=== PATIENT | male | born 1955 | race Caucasian/White ===

== ENCOUNTER 2017-12-12 21:59 | Inpatient (IN) | payer BC, MEDICARE, MEDICAID ==
[~2017-12-12] VITALS: Ht 167.6 cm; Wt 96.6 kg
[2017-12-12] MEDS ORDERED: ACETAMINOPHEN ES 500 MG TABLET PO ONE (22:15)
[2017-12-12] MEDS ORDERED: IPRATROPIUM BROMIDE 0.5 MG/2.5 ML NEBU NEB ONE (22:15)
[2017-12-12] MEDS ORDERED: ALBUTEROL SULFATE 2.5 MG/3 ML NEBU NEB ONE ×2 (22:15→23:00)
[2017-12-12] MEDS ORDERED: FUROSEMIDE 20 MG/2 ML VIAL IV ONE (22:15)
--- NOTE | 2017-12-12 22:15 | NUR ---
Pt BIB [facility], reports pt was SOB, diminished LS. Pt c/o nasal congestion, cough, dyspnea x 3 days, denies FOSTER. Pt denies CP, dizziness, n/v, no other complaints, minor to moderate distress noted in breathing. Pt placed on monitor, EKG -- given to MD, IV 20g right AC, O2 applied via simple mask at 12lpm, SPO2 increased to high 90's from mid 80s.
[2017-12-12] MEDS ORDERED: ACETAMINOPHEN ES 500 MG TABLET ONE (22:43)
[2017-12-12] MEDS ORDERED: FUROSEMIDE 40 MG/4 ML VIAL ONE (22:43)
[2017-12-12] MEDS ORDERED: ALBUTEROL SULFATE 2.5 MG/3 ML NEBU ONE ×2 (22:44→23:10)
[2017-12-12] MEDS ORDERED: IPRATROPIUM BROMIDE 0.5 MG/2.5 ML NEBU ONE (22:45)
[2017-12-12] MEDS ORDERED: LEVOFLOXACIN 750 MG/D5W 150 ML PIGGYBACK IV ONE (23:30)
[2017-12-12 23:35] LABS: BASOPHILS # (AUTO) 0.1 K/uL (0.0-8.0); BASOPHILS % (AUTO) 0.4 % (0.0-2.0); EOSINOPHILS # (AUTO) 0.2 K/uL (0.0-0.7); EOSINOPHILS % (AUTO) 0.7 % (0.0-7.0); HEMATOCRIT 39.6 % (36.7-47.1); HEMOGLOBIN 13.1 g/dL (12.5-16.3); LYMPHOCYTES # (AUTO) 1.1 K/uL (20.0-40.0); MEAN CORPUSCULAR HEMOGLOBIN 26.2 uug (23.8-33.4); MEAN CORPUSCULAR HGB CONC 33 g/dL (32.5-36.3); MONOCYTES % (AUTO) 4.8 % (0.0-11.0); NEUTROPHILS # (AUTO) 19.2 K/uL (1.8-8.9); NEUTROPHILS % (AUTO) 89.1 % (38.5-71.5); PLATELET COUNT (AUTO) 305 K/uL (152-348); RED BLOOD CELL COUNT(AUTO) 5.01 MIL/uL (4.06-5.63); WHITE BLOOD COUNT (AUTO) 21.5 K/uL (3.6-10.2)
[2017-12-12 23:41] LABS: CREATININE 3.1 mg/dL (0.6-1.3); POTASSIUM 3.9 mmol/L (3.5-5.1)
[2017-12-12] MEDS ORDERED: NITROGLYCERIN 4.9 GM SPRAY TL ONE ×2 (23:45→23:55)
[2017-12-12 23:53] LABS: BILIRUBIN,DIRECT 0.1 mg/dL (0.0-0.2); BILIRUBIN,TOTAL 0.6 mg/dL (0.2-1.0)
[2017-12-13] VITALS (9 sets, daily range): BP systolic 158–190; BP diastolic 54–81
[2017-12-13] MEDS ORDERED: NITROGLYCERIN OINT 1 GM PACKET TP ONE ×2 (00:13→00:30)
[2017-12-13] MEDS ORDERED: LEVOFLOXACIN 750MG/D5W 150 ML IV ONE (00:14)
[2017-12-13] MEDS ORDERED: VANCOMYCIN IV 1,000 MG in IV DEXTROSE 5% 250 ML IV ONE (00:30)
[2017-12-13] MEDS ORDERED: PIPERACILLIN SODIUM/TAZOBACTAM 3.375 G in IV DEXTROSE 5% 50 ML IV ONE (00:30)
[2017-12-13] MEDS ORDERED: CLONIDINE HCL 0.1 MG TABLET PO ONE (00:30)
[2017-12-13] MEDS ORDERED: CLONIDINE HCL 0.1 MG TABLET ONE (00:51)
[2017-12-13] MEDS ORDERED: ONDANSETRON 4 MG/2 ML VIAL IV PRN (01:30)
[2017-12-13] MEDS ORDERED: MORPHINE SULFATE 2 MG/1 ML DISP.SYRIN IV PRN (01:30)
[2017-12-13] MEDS ORDERED: PIPERACILLIN/TAZOBACTAM/D5W 50 ML IV ONE (01:44)
--- NOTE | 2017-12-13 02:06 | NUR ---
Pt states he still can not give a urine sample.
--- NOTE | 2017-12-13 02:13 | NUR ---
Called report to Colette RODRIGUEZ.
[2017-12-13] MEDS ORDERED: VANCOMYCIN IV 200 ML ONE (02:20)
[2017-12-13] MEDS ORDERED: BUMETANIDE 1 MG/4 ML VIAL IV ONE ×2 (02:45→09:00)
--- NOTE | 2017-12-13 02:45 | NUR ---
NSG: pt received a/o x 4, fr er via gurney with dx of resp failure. received on 8L mask. lungs sounds wit expiratory wheezing and rhonchi. currently receiving vanco iv. has generalized edema, non pitting. has umbilical hernia. HOB elevated 45 degrees. at the bedside. call light within reach.
[2017-12-13] MEDS: hydrALAZINE HCL 25 MG TABLET PO PRN ×2 (03:20→18:09)
[2017-12-13] MEDS ORDERED: PIPERACILLIN/TAZOBACTAM/D5W 50 ML ONE (03:50)
--- NOTE | 2017-12-13 05:06 | NUR ---
nsg: no acute distress noted. denies discomfort. on 3L O2 via nc saturating at 96%. tele, SR. cont to monitor.
[2017-12-13] MEDS ORDERED: DEXTROSE 50% 50 ML DISP.SYRIN IV PRN ×2 (06:15→11:15)
[2017-12-13] MEDS: PIPERACILLIN/TAZOBACTAM/D5W 2.25 G in PREMIXED 1 EACH IV SCH ×3 (06:33→17:00)
[2017-12-13] MEDS: PANTOPRAZOLE SODIUM 40 MG TABLET.DR PO SCH (06:33)
[2017-12-13] MEDS: BLOOD SUGAR DIAGNOSTIC 1 EACH STRIP VI SCH ×4 (06:50→20:35)
[2017-12-13 06:54] LABS: BASOPHILS # (AUTO) 0.2 K/uL (0.0-8.0); BASOPHILS % (AUTO) 1.4 % (0.0-2.0); EOSINOPHILS % (AUTO) 0.1 % (0.0-7.0); HEMATOCRIT 35.7 % (36.7-47.1); HEMOGLOBIN 11.5 g/dL (12.5-16.3); LYMPHOCYTES # (AUTO) 1.4 K/uL (20.0-40.0); LYMPHOCYTES % (AUTO) 8.2 % (20.5-51.5); MEAN CORPUSCULAR HEMOGLOBIN 25.7 uug (23.8-33.4); MEAN CORPUSCULAR HGB CONC 32 g/dL (32.5-36.3); MEAN CORPUSCULAR VOLUME 79.6 fL (73.0-96.2); MONOCYTES # (AUTO) 1.1 K/uL (2.0-10.0); MONOCYTES % (AUTO) 6.8 % (0.0-11.0); NEUTROPHILS # (AUTO) 13.9 K/uL (1.8-8.9); NEUTROPHILS % (AUTO) 83.5 % (38.5-71.5); PLATELET COUNT (AUTO) 251 K/uL (152-348); RED BLOOD CELL COUNT(AUTO) 4.48 MIL/uL (4.06-5.63); WHITE BLOOD COUNT (AUTO) 16.7 K/uL (3.6-10.2)
[2017-12-13 06:55] LABS: BILIRUBIN,TOTAL 0.5 mg/dL (0.2-1.0); CREATININE 3.2 mg/dL (0.6-1.3); PHOSPHOROUS 2.9 mg/dL (2.5-4.9); POTASSIUM 3.7 mmol/L (3.5-5.1); TOTAL PROTEIN, SERUM 5.8 g/dL (6.4-8.2)
--- NOTE | 2017-12-13 07:54 | NUR ---
AWAKE ALERT AND ORIENTED X3, SLIGHT SOB ON EXERTION WITH 5L NC SATURATING 95%. SR ON MONITOR. CONTINUE WITH JENNIFER OBSERVATION
[2017-12-13] MEDS ORDERED: BUMETANIDE 1 MG/4 ML VIAL IV SCH ×3 (09:00→17:00)
[2017-12-13] MEDS ORDERED: VANCOMYCIN IV 1 G in PREMIXED 0 EACH IV ONE (09:00)
--- NOTE | 2017-12-13 09:42 | NUR ---
Clinical Pharmacy Note: Vancomycin Pharmacy to Dose Subjective: To start vanco in this 62 y/o morbidly obese male for indication of "Documented infxn" (no Md note yet, possible PNA, also ordered levaquin for PNA and zosyn) Objective: weight 112kg height 167 cm BMI 40 BUN 25 Scr 3.2 Wbc 16.7 temp 99.7 1gm vanco given in Er 12/13 @ 0207 Assessment/Plan Due to reduced renal fxn, will dose per level for now. Will dose another 1gm today at 0900 for total loading today of 2gm. Ordered random level with am labs tomorrow. Will check level and dose as appropriate. Will follow
[2017-12-13] MEDS ORDERED: BUMETANIDE 1 MG TABLET PO SCH (09:45)
[2017-12-13] MEDS ORDERED: ICOS1CAP PO (10:49)
[2017-12-13] MEDS ORDERED: AMLO10TA2 PO (10:49)
[2017-12-13] MEDS ORDERED: ROSU10TA PO (10:49)
[2017-12-13] MEDS ORDERED: OLME40TA12 PO (10:49)
[2017-12-13] MEDS ORDERED: GLIM4TAB3 PO (10:49)
[2017-12-13] MEDS ORDERED: METO100T14 PO (10:49)
[2017-12-13] MEDS ORDERED: SITA100T PO (10:49)
[2017-12-13] MEDS ORDERED: BETA15CR4 TP (10:49)
[2017-12-13] MEDS ORDERED: EZET10TA13 PO (10:49)
[2017-12-13] MEDS ORDERED: METF10004 PO (10:49)
[2017-12-13] MEDS ORDERED: INSULIN REGULAR, HUMAN 300 UNIT/3 ML VIAL SQ PRN (11:15)
[2017-12-13] MEDS: INSULIN REGULAR, HUMAN 300 UNIT/3 ML VIAL SQ PRN (11:24)
[2017-12-13] MEDS ORDERED: BLOOD SUGAR DIAGNOSTIC 1 EACH STRIP VI SCH (11:30)
[2017-12-13] MEDS ORDERED: ACETYLCYSTEINE 10% 4ML VIAL NEB SCH (11:45)
--- NOTE | 2017-12-13 12:00 | NUR ---
SEEN BY HOSPITALIST AND COLOR PRINTER OPERATOR WITH ORDERS, SEE NOTES. REMAINS SR ON MONITOR
[2017-12-13] MEDS: LINAGLIPTIN 5 MG TABLET PO SCH (12:17)
[2017-12-13] MEDS: VALSARTAN 160 MG TABLET PO SCH (12:17)
[2017-12-13] MEDS: HEPARIN SODIUM,PORCINE 5,000 UNITS/ML VIAL SQ SCH ×2 (12:18→20:36)
[2017-12-13] MEDS: FUROSEMIDE 40 MG/4 ML VIAL IVP SCH (14:50)
[2017-12-13] MEDS: HYDROCODONE/APAP 5-325MG TABLET PO PRN (14:51)
[2017-12-13] MEDS: METOPROLOL TARTRATE 100 MG TABLET PO SCH (14:52)
--- NOTE | 2017-12-13 15:25 | NUR ---
MEDICATED WITH NORCO FOR MUSCLE PAIN OVER CHEST FROM COUGHING WITH GOOD RELIEF. PER SCALE TESTER HOSPITALIST CONTINUE WITH JENNIFER OBSERVATION . CLOSE MONITORING FOR HIGH BP
[2017-12-13] MEDS: ALBUTEROL SULFATE 1.25 MG/3 ML NEBU NEB PRN ×3 (15:38→23:01)
[2017-12-13] MEDS: ACETYLCYSTEINE 20% 800 MG/4 ML VIAL NEB SCH ×2 (15:38→23:01)
[2017-12-13] MEDS: GLIMEPIRIDE 4 MG TABLET PO SCH (16:15)
[2017-12-13] MEDS ORDERED: Medication Not On Formulary EA (Icosapent Ethyl (Vascepa) 1 GM) PO SCH (17:00)
--- NOTE | 2017-12-13 19:00 | NUR ---
Received report from FREYA Patel. Patient awake and alert during initial rounds. Denies any pain/discomforts. No s/s of respiratory distress noted, O2 sat on 5L via NC 95%. HOB elevated. BLE swollen with cellulitis, elevated with pillows. Continue care as planned.
--- NOTE | 2017-12-13 19:30 | NUR ---
Complaint of difficulty breathing. RT notified and at bedside. O2 sat 92% at this time. Breathing treatment given by RT. Will monitor.
[2017-12-13] MEDS: IPRATROPIUM BROMIDE 0.5 MG/2.5 ML NEBU NEB PRN ×2 (19:38→23:01)
[2017-12-13] MEDS: OMEGA-3 FATTY ACIDS/FISH OIL CAPSULE PO SCH (20:35)
[2017-12-13] MEDS: ATORVASTATIN 20 MG TABLET PO SCH (20:35)
[2017-12-13] MEDS: DOCUSATE SODIUM 250 MG CAPSULE PO SCH (20:35)
--- NOTE | 2017-12-13 20:43 | NUR ---
BS 64 mg/dl. Snack and orange juice provided. Will monitor for s/s of hypoglycemia.
[2017-12-13] MEDS ORDERED: ATORVASTATIN 20 MG TABLET PO SCH (21:00)
--- NOTE | 2017-12-13 21:20 | NUR ---
Patient complaint of difficulty breathing again, O2 sat checked 93% on 5L, showed to patient the result but BP 187/64. Texted Dr Beckman. Note that patient had Apresoline 25 mg at 1809 with BP 174/70. Awaiting MD response. Charge nurse aware.
--- NOTE | 2017-12-13 21:42 | NUR ---
Dr Beckman texted back with order to increase Hydralazine to 50 mg every 6 hours PRN.
[2017-12-13] MEDS ORDERED: hydrALAZINE HCL 25 MG TABLET PO PRN (21:45)
[2017-12-13] MEDS ORDERED: hydrALAZINE HCL 50 MG TABLET ONE (22:44)
[2017-12-13] MEDS ORDERED: FUROSEMIDE 40 MG/4 ML VIAL IV ONE (23:45)
--- NOTE | 2017-12-13 23:58 | NUR ---
Obtained order from Dr Lund Lasix 40 mg IV x 1, given for wheezing. VS taken 165/81, 93, 22 93% on 8L simple mask. Will continue to monitor.
[2017-12-14] VITALS (10 sets, daily range): BP systolic 128–203; BP diastolic 49–71
[2017-12-14] MEDS ORDERED: FUROSEMIDE 40 MG/4 ML VIAL ONE (00:07)
--- NOTE | 2017-12-14 00:07 | NUR ---
Morphine 2 mg IV given as ordered and needed for pain. Will monitor.
[2017-12-14] MEDS ORDERED: MORPHINE SULFATE 4 MG/1 ML DISP.SYRIN ONE (00:10)
[2017-12-14] MEDS: PIPERACILLIN/TAZOBACTAM/D5W 2.25 G in PREMIXED 1 EACH IV SCH ×5 (00:13→23:53)
[2017-12-14] MEDS: PANTOPRAZOLE SODIUM 40 MG TABLET.DR PO SCH (05:25)
[2017-12-14] MEDS ORDERED: hydrALAZINE HCL 50 MG TABLET ONE (05:39)
--- NOTE | 2017-12-14 05:43 | NUR ---
BP 188/71 Hydralazine 50 mg given as needed and ordered. Patient denies s/s of hypertension. Will continue to monitor.
[2017-12-14] MEDS: BLOOD SUGAR DIAGNOSTIC 1 EACH STRIP VI SCH ×4 (05:45→20:22)
[2017-12-14] MEDS: IPRATROPIUM BROMIDE 0.5 MG/2.5 ML NEBU NEB PRN ×3 (07:34→22:41)
[2017-12-14] MEDS: ALBUTEROL SULFATE 2.5 MG/3 ML NEBU NEB PRN (07:35)
[2017-12-14] MEDS: ACETYLCYSTEINE 20% 800 MG/4 ML VIAL NEB SCH ×3 (07:35→22:41)
[2017-12-14 07:40] LABS: BASOPHILS # (AUTO) 0.1 K/uL (0.0-8.0); BASOPHILS % (AUTO) 0.6 % (0.0-2.0); EOSINOPHILS % (AUTO) 0.1 % (0.0-7.0); HEMATOCRIT 36.2 % (36.7-47.1); HEMOGLOBIN 11.9 g/dL (12.5-16.3); LYMPHOCYTES # (AUTO) 1.1 K/uL (20.0-40.0); LYMPHOCYTES % (AUTO) 7.2 % (20.5-51.5); MEAN CORPUSCULAR HGB CONC 33 g/dL (32.5-36.3); MEAN CORPUSCULAR VOLUME 79.3 fL (73.0-96.2); MONOCYTES # (AUTO) 1.3 K/uL (2.0-10.0); MONOCYTES % (AUTO) 8.4 % (0.0-11.0); NEUTROPHILS # (AUTO) 13.1 K/uL (1.8-8.9); NEUTROPHILS % (AUTO) 83.7 % (38.5-71.5); PLATELET COUNT (AUTO) 264 K/uL (152-348); RED BLOOD CELL COUNT(AUTO) 4.56 MIL/uL (4.06-5.63); WHITE BLOOD COUNT (AUTO) 15.6 K/uL (3.6-10.2)
[2017-12-14] MEDS: LEVOFLOXACIN 250MG /D5W 250 MG in PREMIXED 1 EACH IV SCH (08:02)
[2017-12-14] MEDS: ASPIRIN EC 81 MG TABLET.DR PO SCH (08:03)
[2017-12-14] MEDS: LACTOBACILLUS RHAMNOSUS GG 1 EACH CAPSULE PO SCH ×2 (08:03→20:22)
[2017-12-14] MEDS: EZETIMIBE 10 MG TABLET PO SCH (08:03)
[2017-12-14] MEDS: OMEGA-3 FATTY ACIDS/FISH OIL CAPSULE PO SCH ×2 (08:03→20:22)
[2017-12-14] MEDS: AMLODIPINE 10 MG TABLET PO SCH (08:03)
[2017-12-14] MEDS: FUROSEMIDE 40 MG/4 ML VIAL IVP SCH ×2 (08:03→17:32)
[2017-12-14] MEDS: VALSARTAN 160 MG TABLET PO SCH (08:03)
[2017-12-14] MEDS: GLIMEPIRIDE 4 MG TABLET PO SCH ×2 (08:03→17:32)
[2017-12-14] MEDS: HEPARIN SODIUM,PORCINE 5,000 UNITS/ML VIAL SQ SCH (08:08)
[2017-12-14] MEDS: LINAGLIPTIN 5 MG TABLET PO SCH (08:11)
[2017-12-14] MEDS: METOPROLOL TARTRATE 100 MG TABLET PO SCH ×2 (08:11→20:24)
[2017-12-14] MEDS ORDERED: hydrALAZINE HCL 50 MG TABLET PO PRN (08:15)
[2017-12-14 08:31] LABS: BILIRUBIN,TOTAL 0.6 mg/dL (0.2-1.0); CREATININE 3.9 mg/dL (0.6-1.3); MAGNESIUM 1.9 mg/dL (1.8-2.4); PHOSPHOROUS 3.7 mg/dL (2.5-4.9); POTASSIUM 3.6 mmol/L (3.5-5.1); TOTAL PROTEIN, SERUM 6.1 g/dL (6.4-8.2)
[2017-12-14] MEDS ORDERED: METOPROLOL TARTRATE 50 MG TABLET PO ONE (09:00)
[2017-12-14] MEDS ORDERED: Medication Not On Formulary EA (Rosuvastatin Calcium (Crestor) 1 TAB) PO SCH (09:00)
[2017-12-14] MEDS: hydrALAZINE HCL 50 MG TABLET PO SCH ×3 (10:13→22:50)
[2017-12-14] MEDS ORDERED: VANCOMYCIN IV 1,500 MG in IV NORMAL SALINE 500 ML IV ONE (12:30)
[2017-12-14 12:47] LABS: ABG BASE EXCESS -1.2 mmol/L; ABG HCO3 22.9 mmol/L; ABG PCO2 36.4 mmHg (35.0-45.0); ABG PH 7.417 (7.350-7.450); ABG PO2 82.4 mmHg (75.0-100.0); ABG SITE RIGHT RADIAL; COHb 0.9 % (0.5-1.5); MetHb 0.3 % (0.0-1.5); O2Hb 95.2 % (94.0-97.0)
--- NOTE | 2017-12-14 15:41 | NUR ---
Clinical Pharmacy Note: Vancomycin Pharmacy to Dose Subjective: To continue vanco in this 62 y/o morbidly obese male for indication of "Documented infxn" ( PNA, also ordered levaquin for PNA and zosyn) Objective: weight 112kg height 167 cm BMI 40 BUN 28 Scr 3.9 Wbc 15.6 temp 99.7 Vancomycin random 18.7 today at 0600 Assessment/Plan Due to reduced renal fxn, continue to dose per level for now. Vancomycin 1500mg IVx1 given today at 1230m. Ordered random level on 12/16/17. Will check level and dose as appropriate. Will follow
[2017-12-14] MEDS: ALBUTEROL SULFATE 1.25 MG/3 ML NEBU NEB PRN ×2 (15:43→22:41)
[2017-12-14] MEDS: BETAMET DP 0.05% AUGM CR 15 GM CREAM.GM. TOP SCH (17:13)
--- NOTE | 2017-12-14 19:00 | NUR ---
Received patient asleeping comfortably during initial rounds. No s/s of respiratory distress noted. Safety measures maintained. Continue plan of care.
--- NOTE | 2017-12-14 19:12 | NUR ---
PT GOT THORACENTESIS 1000 ML,SENT TO LAB
[2017-12-14] MEDS: ACETAMINOPHEN 325 MG TABLET PO PRN (20:22)
[2017-12-14] MEDS: DOCUSATE SODIUM 250 MG CAPSULE PO SCH (20:23)
[2017-12-14] MEDS: ATORVASTATIN 20 MG TABLET PO SCH (20:28)
[2017-12-14] MEDS: MORPHINE SULFATE 4 MG/1 ML DISP.SYRIN IV PRN (22:55)
[2017-12-15 04:00] VITALS: BP 146/68
[2017-12-15] MEDS: BLOOD SUGAR DIAGNOSTIC 1 EACH STRIP VI SCH ×4 (05:30→20:57)
[2017-12-15] MEDS: hydrALAZINE HCL 50 MG TABLET PO SCH ×3 (05:31→21:00)
[2017-12-15] MEDS: PANTOPRAZOLE SODIUM 40 MG TABLET.DR PO SCH (05:32)
[2017-12-15] MEDS: PIPERACILLIN/TAZOBACTAM/D5W 2.25 G in PREMIXED 1 EACH IV SCH ×4 (05:32→23:59)
--- NOTE | 2017-12-15 06:39 | NUR ---
Slept good. No s/s of respiratory distress. Medicated once for complaint of generalized pain with relief. BP trending down to expected direction. Converted to SR as per MT. All needs attended and met. Continue care as planned.
[2017-12-15 07:25] VITALS: BP 141/64
[2017-12-15] MEDS: ALBUTEROL SULFATE 1.25 MG/3 ML NEBU NEB PRN (07:58)
[2017-12-15] MEDS: IPRATROPIUM BROMIDE 0.5 MG/2.5 ML NEBU NEB PRN ×2 (07:58→23:05)
[2017-12-15] MEDS: ACETYLCYSTEINE 20% 800 MG/4 ML VIAL NEB SCH ×3 (07:58→23:05)
[2017-12-15] MEDS: LACTOBACILLUS RHAMNOSUS GG 1 EACH CAPSULE PO SCH ×2 (08:26→20:58)
[2017-12-15] MEDS: EZETIMIBE 10 MG TABLET PO SCH (08:26)
[2017-12-15] MEDS: OMEGA-3 FATTY ACIDS/FISH OIL CAPSULE PO SCH ×2 (08:26→20:58)
[2017-12-15] MEDS: METOPROLOL TARTRATE 100 MG TABLET PO SCH ×2 (08:29→20:59)
[2017-12-15] MEDS: ASPIRIN EC 81 MG TABLET.DR PO SCH (08:30)
[2017-12-15] MEDS: AMLODIPINE 10 MG TABLET PO SCH (08:30)
[2017-12-15] MEDS: LINAGLIPTIN 5 MG TABLET PO SCH (08:30)
[2017-12-15] MEDS: FUROSEMIDE 40 MG/4 ML VIAL IVP SCH (08:31)
[2017-12-15] MEDS: LEVOFLOXACIN 250MG /D5W 250 MG in PREMIXED 1 EACH IV SCH (08:33)
[2017-12-15] MEDS: BETAMET DP 0.05% AUGM CR 15 GM CREAM.GM. TOP SCH (08:34)
[2017-12-15] MEDS ORDERED: FUROSEMIDE 40 MG/4 ML VIAL IVP SCH (09:00)
[2017-12-15] MEDS: FUROSEMIDE 20 MG/2 ML VIAL IVP SCH ×2 (09:00→15:57)
[2017-12-15] MEDS ORDERED: GLIMEPIRIDE 4 MG TABLET PO SCH (09:00)
[2017-12-15] MEDS: GLIMEPIRIDE 2 MG TABLET PO SCH ×2 (09:05→17:02)
--- NOTE | 2017-12-15 09:08 | NUR ---
IV lasix 20mg BID for AM held. IV Lasix 40mg already given this am.
[2017-12-15] MEDS: INSULIN REGULAR, HUMAN 300 UNIT/3 ML VIAL SQ PRN ×2 (11:27→20:56)
[2017-12-15 11:42] VITALS: BP 133/53
[2017-12-15 12:07] LABS: ALBUMIN 2.6 g/dL (2.9-4.4); ALPHA-1-GLOBULIN 0.3 g/dL (0.0-0.4); ALPHA-2-GLOBULIN 1.1 g/dL (0.4-1.0); BETA GLOBULIN 0.7 g/dL (0.7-1.3); GAMMA GLOBULIN 0.6 g/dL (0.4-1.8); GLOBULIN, TOTAL 2.7 g/dL (2.2-3.9); M-SPIKE Not Observed g/dL (Not Observed)
[2017-12-15 15:30] VITALS: BP 159/52
--- NOTE | 2017-12-15 15:35 | NUR ---
Clinical Pharmacy Note: Vancomycin Pharmacy to Dose Subjective: To continue vanco in this 62 y/o morbidly obese male for indication of "Documented infxn" ( PNA, also ordered levaquin for PNA and zosyn) Objective: weight 112kg height 167 cm BMI 40 BUN 28 (2/8) Scr 3.9 (2/8) Wbc 15.6(2/8) temp 98.8 Vancomycin random 18.7 today at 0600 Assessment/Plan Due to reduced renal fxn, continue to dose per level for now. No dose given today. Ordered random level on 12/16/17. Will check level and dose as appropriate. Will follow
[2017-12-15] MEDS: ALBUTEROL SULFATE 2.5 MG/3 ML NEBU NEB PRN ×2 (15:49→23:05)
--- NOTE | 2017-12-15 16:05 | NUR ---
At 1545, pt's blood sugar noted to be 44. Otero juice given per protocol. BS rechecked and noted to be 90. More orange juice given per protocol and proven effective. Will continue monitor pt's blood sugar as ordered.
[2017-12-15] MEDS: hydrALAZINE HCL 20 MG/1 ML VIAL IV PRN (18:08)
[2017-12-15] MEDS: ACETAMINOPHEN 325 MG TABLET PO PRN ×2 (18:11→21:03)
[2017-12-15 20:00] VITALS: BP 171/54
[2017-12-15] MEDS: DOCUSATE SODIUM 250 MG CAPSULE PO SCH (20:58)
[2017-12-15] MEDS: ATORVASTATIN 20 MG TABLET PO SCH (20:58)
[2017-12-15] MEDS: HYDROCODONE/APAP 5-325MG TABLET PO PRN (21:03)
[2017-12-15] MEDS: IV NORMAL SALINE 250 ML IV PRN (23:00)
[2017-12-16] VITALS (8 sets, daily range): BP systolic 143–170; BP diastolic 54–69
[2017-12-16] MEDS ORDERED: IV NORMAL SALINE 250 ML BAG IV ONE (00:01)
--- NOTE | 2017-12-16 00:13 | NUR ---
Tele Monitor episode: irregular ventricular rythm, rate 95
[2017-12-16] MEDS: hydrALAZINE HCL 50 MG TABLET PO SCH ×3 (05:33→21:08)
[2017-12-16] MEDS: PIPERACILLIN/TAZOBACTAM/D5W 2.25 G in PREMIXED 1 EACH IV SCH ×3 (05:33→20:15)
[2017-12-16 06:56] LABS: BASOPHILS # (AUTO) 0.1 K/uL (0.0-8.0); BASOPHILS % (AUTO) 0.7 % (0.0-2.0); EOSINOPHILS # (AUTO) 0.1 K/uL (0.0-0.7); EOSINOPHILS % (AUTO) 0.8 % (0.0-7.0); HEMATOCRIT 36.5 % (36.7-47.1); HEMOGLOBIN 11.8 g/dL (12.5-16.3); LYMPHOCYTES # (AUTO) 1.4 K/uL (20.0-40.0); LYMPHOCYTES % (AUTO) 10.7 % (20.5-51.5); MEAN CORPUSCULAR HEMOGLOBIN 25.8 uug (23.8-33.4); MEAN CORPUSCULAR HGB CONC 32 g/dL (32.5-36.3); MEAN CORPUSCULAR VOLUME 79.4 fL (73.0-96.2); MONOCYTES # (AUTO) 1.4 K/uL (2.0-10.0); MONOCYTES % (AUTO) 10.5 % (0.0-11.0); NEUTROPHILS # (AUTO) 10.2 K/uL (1.8-8.9); NEUTROPHILS % (AUTO) 77.3 % (38.5-71.5); PLATELET COUNT (AUTO) 298 K/uL (152-348); RED BLOOD CELL COUNT(AUTO) 4.59 MIL/uL (4.06-5.63); WHITE BLOOD COUNT (AUTO) 13.1 K/uL (3.6-10.2)
[2017-12-16] MEDS: PANTOPRAZOLE SODIUM 40 MG TABLET.DR PO SCH (07:00)
[2017-12-16 07:16] LABS: BILIRUBIN,TOTAL 0.5 mg/dL (0.2-1.0); MAGNESIUM 2.3 mg/dL (1.8-2.4); PHOSPHOROUS 5.7 mg/dL (2.5-4.9); POTASSIUM 3.4 mmol/L (3.5-5.1); TOTAL PROTEIN, SERUM 6.4 g/dL (6.4-8.2); VANCOMYCIN,RANDOM 23.2 ug/mL (18.0-26.0)
[2017-12-16] MEDS: BLOOD SUGAR DIAGNOSTIC 1 EACH STRIP VI SCH ×4 (07:30→20:59)
--- NOTE | 2017-12-16 07:30 | NUR ---
RECIEVED PT LYING IN BED AWAKE AND ORIENTEDX3. SPEECH IS CLEAR AND FOLLOWS COMMANDS. FACE IS SYMMETRICAL AND EVEN. HAS LEFT SIDED WEAKNESS BUT RIGHT SIDE IS GOOD. O2 ON 6L NC AND SATTING GOOD IN THE 95%. NO APPARENT RESPIRATORY DISTRESS NOTED.
[2017-12-16] MEDS: ALBUTEROL SULFATE 2.5 MG/3 ML NEBU NEB PRN (07:46)
[2017-12-16] MEDS: ACETYLCYSTEINE 20% 800 MG/4 ML VIAL NEB SCH ×3 (07:46→21:56)
--- NOTE | 2017-12-16 09:00 | NUR ---
PT ATE LITTLE BREAKFAST BUT SWALLOWING WELL. DIURESED VERY LITTLE.
[2017-12-16] MEDS: OMEGA-3 FATTY ACIDS/FISH OIL CAPSULE PO SCH ×2 (10:32→21:05)
[2017-12-16] MEDS: ASPIRIN EC 81 MG TABLET.DR PO SCH (10:32)
[2017-12-16] MEDS: FUROSEMIDE 20 MG/2 ML VIAL IVP SCH ×2 (10:32→17:40)
[2017-12-16] MEDS: AMLODIPINE 10 MG TABLET PO SCH (10:33)
[2017-12-16] MEDS: LACTOBACILLUS RHAMNOSUS GG 1 EACH CAPSULE PO SCH ×2 (10:34→21:07)
[2017-12-16] MEDS: LEVOFLOXACIN 250MG /D5W 250 MG in PREMIXED 1 EACH IV SCH (10:53)
[2017-12-16] MEDS: METOPROLOL TARTRATE 100 MG TABLET PO SCH ×2 (10:54→21:07)
[2017-12-16] MEDS: GLIMEPIRIDE 2 MG TABLET PO SCH ×2 (10:54→20:16)
[2017-12-16] MEDS: LINAGLIPTIN 5 MG TABLET PO SCH (10:54)
[2017-12-16] MEDS: EZETIMIBE 10 MG TABLET PO SCH (10:54)
[2017-12-16] MEDS: BETAMET DP 0.05% AUGM CR 15 GM CREAM.GM. TOP SCH (10:55)
--- NOTE | 2017-12-16 12:00 | NUR ---
BLOOD SUGAR IS 59. NO S/S OF HYPOGLYCEMIA. GAVE 1 CUP OF OJ.
[2017-12-16] MEDS: IPRATROPIUM BROMIDE 0.5 MG/2.5 ML NEBU NEB SCH ×3 (12:58→19:42)
[2017-12-16] MEDS: ALBUTEROL SULFATE 2.5 MG/ 0.5 ML NEBU NEB SCH ×3 (12:58→19:42)
--- NOTE | 2017-12-16 13:35 | NUR ---
Clinical Pharmacy Note: Vancomycin Pharmacy to Dose Subjective: To continue vanco in this 62 y/o morbidly obese male for indication of pna Objective: weight 112kg height 167 cm BMI 40 BUN 41 Scr 5 (not HD yet) Wbc 13.1 temp 98.7 Vancomycin random today at 0600: 23.2 Assessment/Plan Due to reduced renal fxn, continue to dose per level for now. No dose given today since vanco random level is above 20 mcg/ml. Ordered random level on 12/17/17 (with am labs). Will check level and dose as appropriate. Will follow
[2017-12-16] MEDS ORDERED: POTASSIUM CHLORIDE 20 MEQ TAB.PRT.SR PO ONE (17:30)
--- NOTE | 2017-12-16 17:30 | NUR ---
SEEN AND EXAMINED BY DR GARCIA. BS IS 48. NO APPARENT DISTRESS NOTED. GIVEN 2 CUPS OF OJ. ATE VERY LITTLE FOR LUNCH.
--- NOTE | 2017-12-16 18:30 | NUR ---
AT THE BEDSIDE. PM CARE RENDERED.
[2017-12-16] MEDS: DOCUSATE SODIUM 100 MG CAPSULE PO SCH (21:05)
[2017-12-16] MEDS: ATORVASTATIN 20 MG TABLET PO SCH (21:07)
[2017-12-16] MEDS: ALBUTEROL SULFATE 1.25 MG/3 ML NEBU NEB PRN (21:56)
--- NOTE | 2017-12-16 22:00 | NUR ---
Pleasant and cooperative. HTN controlled with oral meds. Remains on JENNIFER status, closely monitored in CCU. Stable rhythm. Blood glucose level per accuchek improved. Sleeps at periodic intervals. Please see JENNIFER/CCU flowsheet for full assessment and clinical data.
[2017-12-17] VITALS (21 sets, daily range): BP systolic 135–196; BP diastolic 56–78
[2017-12-17] MEDS: ALBUTEROL SULFATE 1.25 MG/3 ML NEBU NEB PRN ×3 (00:03→22:57)
[2017-12-17] MEDS: IPRATROPIUM BROMIDE 0.5 MG/2.5 ML NEBU NEB PRN ×3 (00:03→22:58)
[2017-12-17] MEDS: PIPERACILLIN/TAZOBACTAM/D5W 2.25 G in PREMIXED 1 EACH IV SCH ×5 (00:10→23:50)
[2017-12-17 00:48] LABS: *BILIRUBIN,URIN NEGATIVE (NEGATIVE); *BLOOD, URINE NEGATIVE (NEGATIVE); *CLARITY,URINE SLIGHTLY CLOUDY (CLEAR); *COLOR,URINE YELLOW (YELLOW); *KETONES,URINE NEGATIVE (NEGATIVE); *UROBILINOGEN,URINE 0.2 E.U./dl (NORMAL); LEUKOCYTE ESTERASE ,URINE NEGATIVE (NEGATIVE); NITRITE, URINE NEGATIVE (NEGATIVE); PH,URINE 5.5 (5.0-8.0); UGLUCOSE NEGATIVE (NEGATIVE)
[2017-12-17 00:57] LABS: *CREATININE,URINE 115.2 mg/dL (30-125)
[2017-12-17 01:12] LABS: *PROTEIN,URINE 3+ (NEGATIVE)
[2017-12-17 01:20] LABS: BACTERIA,URINE NONE SEEN /HPF (NONE SEEN); MUCUS,URINE FEW /LPF (0-FEW); RBC,URINE 0-3 /HPF (0-3); SQUAMOUS EPITHELIAL CELL,UR FEW /HPF (NONE SEEN); URINE AMORPHOUS URATE MODERATE /HPF; WBC,URINE 0-3 /HPF (0-3)
[2017-12-17] MEDS: hydrALAZINE HCL 50 MG TABLET PO SCH ×3 (05:26→21:04)
[2017-12-17 05:28] LABS: BASOPHILS # (AUTO) 0.1 K/uL (0.0-8.0); BASOPHILS % (AUTO) 0.6 % (0.0-2.0); EOSINOPHILS # (AUTO) 0.2 K/uL (0.0-0.7); EOSINOPHILS % (AUTO) 1.5 % (0.0-7.0); HEMATOCRIT 35.2 % (36.7-47.1); HEMOGLOBIN 11.5 g/dL (12.5-16.3); LYMPHOCYTES # (AUTO) 1.1 K/uL (20.0-40.0); LYMPHOCYTES % (AUTO) 7.7 % (20.5-51.5); MEAN CORPUSCULAR HEMOGLOBIN 25.9 uug (23.8-33.4); MEAN CORPUSCULAR HGB CONC 33 g/dL (32.5-36.3); MEAN CORPUSCULAR VOLUME 79.1 fL (73.0-96.2); MONOCYTES # (AUTO) 1.4 K/uL (2.0-10.0); MONOCYTES % (AUTO) 9.9 % (0.0-11.0); NEUTROPHILS # (AUTO) 11.5 K/uL (1.8-8.9); NEUTROPHILS % (AUTO) 80.3 % (38.5-71.5); PLATELET COUNT (AUTO) 303 K/uL (152-348); RED BLOOD CELL COUNT(AUTO) 4.45 MIL/uL (4.06-5.63); WHITE BLOOD COUNT (AUTO) 14.3 K/uL (3.6-10.2)
[2017-12-17 05:34] LABS: CREATININE 5.2 mg/dL (0.6-1.3); PHOSPHOROUS 5.6 mg/dL (2.5-4.9); POTASSIUM 3.2 mmol/L (3.5-5.1)
[2017-12-17 05:58] LABS: MAGNESIUM 2.1 mg/dL (1.8-2.4)
--- NOTE | 2017-12-17 06:00 | NUR ---
Stable night. At times has bladder incontinence but refuses diaper. Perineal redness noted and ZGuard cream applied. Kept clean and dry at all times. Able to sleep. Denies pain/discomfort.
[2017-12-17] MEDS: PANTOPRAZOLE SODIUM 40 MG TABLET.DR PO SCH (06:17)
[2017-12-17] MEDS: Z GUARD REMEDY PASTE 57 GM TUBE TOP PRN (06:37)
[2017-12-17] MEDS: ALBUTEROL SULFATE 2.5 MG/ 0.5 ML NEBU NEB SCH ×4 (07:18→19:31)
[2017-12-17] MEDS: IPRATROPIUM BROMIDE 0.5 MG/2.5 ML NEBU NEB SCH ×4 (07:18→19:31)
[2017-12-17] MEDS: ACETYLCYSTEINE 20% 800 MG/4 ML VIAL NEB SCH ×3 (07:19→22:58)
[2017-12-17] MEDS: BLOOD SUGAR DIAGNOSTIC 1 EACH STRIP VI SCH ×4 (07:46→20:57)
--- NOTE | 2017-12-17 07:50 | NUR ---
Pt. BS 50 ,pt.A/A/O x3 no s/s of hypoglycemia,food tray and orange juice given.
[2017-12-17] MEDS: OMEGA-3 FATTY ACIDS/FISH OIL CAPSULE PO SCH ×2 (07:55→20:49)
[2017-12-17] MEDS: AMLODIPINE 10 MG TABLET PO SCH (07:55)
[2017-12-17] MEDS: FUROSEMIDE 20 MG/2 ML VIAL IVP SCH ×2 (07:55→16:48)
[2017-12-17] MEDS: hydrALAZINE HCL 20 MG/1 ML VIAL IV PRN ×2 (07:55→16:49)
[2017-12-17] MEDS: ASPIRIN EC 81 MG TABLET.DR PO SCH (07:55)
[2017-12-17] MEDS: LACTOBACILLUS RHAMNOSUS GG 1 EACH CAPSULE PO SCH ×2 (07:55→20:49)
[2017-12-17] MEDS: METOPROLOL TARTRATE 100 MG TABLET PO SCH (07:57)
[2017-12-17] MEDS: GLIMEPIRIDE 2 MG TABLET PO SCH ×2 (07:58→16:49)
[2017-12-17] MEDS: EZETIMIBE 10 MG TABLET PO SCH (07:58)
[2017-12-17] MEDS: Z GUARD REMEDY PASTE 57 GM TUBE TOP SCH ×2 (07:59→20:50)
[2017-12-17] MEDS: LINAGLIPTIN 5 MG TABLET PO SCH (07:59)
[2017-12-17] MEDS: BETAMET DP 0.05% AUGM CR 15 GM CREAM.GM. TOP SCH (08:00)
--- NOTE | 2017-12-17 08:23 | NUR ---
Clinical Pharmacy Note: Vancomycin Pharmacy to Dose Subjective: To continue vanco in this 62 y/o morbidly obese male for indication of pna/early sepsis Objective: weight 112kg height 167 cm BMI 40 BUN 40 Scr 5.2 (not HD yet) Wbc 14.3 temp 98.3 Vancomycin random today at 0600: 18 Assessment/Plan Due to reduced renal fxn, continue to dose per level for now. Vancomycin 1500mg iv x1 will be given today at 1000. Ordered random level on 12/19 with am labs. Will check level and dose as appropriate. Will follow.
--- NOTE | 2017-12-17 09:45 | NUR ---
Pt.was seen by MEETING PLANNER:Sheryl Alvarenga,was notified about pt.condition HTN,BS low.
[2017-12-17] MEDS ORDERED: VANCOMYCIN IV 1,500 MG in IV NORMAL SALINE 500 ML IV ONE (10:00)
--- NOTE | 2017-12-17 10:30 | NUR ---
Pt.was seen by ,was updated with pt.condition and HTN .
--- NOTE | 2017-12-17 11:30 | NUR ---
PT PLACED ON HIGH FLOW NASAL CANULA 80% FIO2 AT 40LPM. SPO2 WITHIN NORMAL LIMITS Addendum: 12/17/17 at 1132 by MIESHA KWONG RT ERROR. PT IS CURRENTLY ON 6LPM NC.
[2017-12-17] MEDS: NITROGLYCERIN 0.1 MG/HR (=4 CM2) PATCH TD SCH (11:40)
[2017-12-17] MEDS ORDERED: POTASSIUM CHLORIDE 20 MEQ TAB.PRT.SR PO ONE (12:00)
--- NOTE | 2017-12-17 12:00 | NUR ---
Pt. was seen by with new orders.
[2017-12-17] MEDS: MORPHINE SULFATE 4 MG/1 ML DISP.SYRIN IV PRN ×2 (14:59→23:18)
--- NOTE | 2017-12-17 15:30 | NUR ---
Family at bedside,updated with pt.condition and plan of care.
--- NOTE | 2017-12-17 18:18 | NUR ---
Pt.eating dinner,poor appetite, watching TV denies any pain, SOB noted on exertion.
[2017-12-17] MEDS: IV NORMAL SALINE 250 ML IV PRN (19:00)
--- NOTE | 2017-12-17 20:30 | NUR ---
Started BiPaP: rate 16, 50% FiO2, 15/5. Patient stated, 'I can't breath.' SaO2 89%. No distress noted.
[2017-12-17] MEDS: DOCUSATE SODIUM 100 MG CAPSULE PO SCH (20:49)
[2017-12-17] MEDS: ATORVASTATIN 20 MG TABLET PO SCH (20:49)
--- NOTE | 2017-12-17 20:55 | NUR ---
Accucheck 46; gave O.J. & 3 pkts sugar. Will re:check in 1 HR.
[2017-12-17] MEDS: CARVEDILOL 25 MG TABLET PO SCH (20:57)
[2017-12-17] MEDS ORDERED: LEVOFLOXACIN 500 MG/D5W 500 MG in PREMIXED 1 EACH IV SCH (21:00)
[2017-12-17] MEDS ORDERED: CARVEDILOL 25 MG TABLET ONE (21:12)
--- NOTE | 2017-12-17 22:03 | NUR ---
Accucheck 90; after, O.J. & 3 pkts sugar.
--- NOTE | 2017-12-17 22:30 | NUR ---
Patient not tolerating BiPaP; changed to 6L FM. Patient stated, 'I can't breath.' SaO2 94%. No distress noted.
[2017-12-18] VITALS (25 sets, daily range): BP systolic 137–179; BP diastolic 50–78
[2017-12-18 05:31] LABS: CREATININE 4.9 mg/dL (0.6-1.3); MAGNESIUM 2.3 mg/dL (1.8-2.4); PHOSPHOROUS 5.1 mg/dL (2.5-4.9); POTASSIUM 3.6 mmol/L (3.5-5.1)
[2017-12-18 05:38] LABS: BASOPHILS # (AUTO) 0.1 K/uL (0.0-8.0); EOSINOPHILS # (AUTO) 0.4 K/uL (0.0-0.7); EOSINOPHILS % (AUTO) 2.7 % (0.0-7.0); HEMATOCRIT 31.9 % (36.7-47.1); HEMOGLOBIN 10.3 g/dL (12.5-16.3); LYMPHOCYTES # (AUTO) 1.3 K/uL (20.0-40.0); LYMPHOCYTES % (AUTO) 8.6 % (20.5-51.5); MEAN CORPUSCULAR HEMOGLOBIN 25.6 uug (23.8-33.4); MEAN CORPUSCULAR HGB CONC 32 g/dL (32.5-36.3); MEAN CORPUSCULAR VOLUME 79.8 fL (73.0-96.2); MONOCYTES # (AUTO) 1.5 K/uL (2.0-10.0); MONOCYTES % (AUTO) 9.9 % (0.0-11.0); NEUTROPHILS # (AUTO) 11.7 K/uL (1.8-8.9); NEUTROPHILS % (AUTO) 77.8 % (38.5-71.5); PLATELET COUNT (AUTO) 236 K/uL (152-348); WHITE BLOOD COUNT (AUTO) 15.1 K/uL (3.6-10.2)
[2017-12-18] MEDS: PIPERACILLIN/TAZOBACTAM/D5W 2.25 G in PREMIXED 1 EACH IV SCH ×3 (05:48→17:36)
[2017-12-18] MEDS: hydrALAZINE HCL 50 MG TABLET PO SCH ×3 (05:50→21:28)
--- NOTE | 2017-12-18 06:00 | NUR ---
Laboratory glucose 51; gave O.J. & 3 pkts sugar. Will accucheck in 1 HR.
[2017-12-18] MEDS: PANTOPRAZOLE SODIUM 40 MG TABLET.DR PO SCH (06:13)
[2017-12-18] MEDS: BLOOD SUGAR DIAGNOSTIC 1 EACH STRIP VI SCH ×4 (07:18→21:31)
--- NOTE | 2017-12-18 07:20 | NUR ---
Accucheck 99; after, O.J. & 3 pkts sugar.
--- NOTE | 2017-12-18 07:30 | NUR ---
PT IS RESTING WELL. IN A VERY PLEASANT SPIRIT AND VERY COOPERATIVE. DENIES OF ANY PAINS. SR ON MONITOR. O2 MASK AT 6L, SATTING IN THE 95%. LUNGS HAS SCATTERED RHONCHIS. NO APPARENT DISTRESS NOTED.
[2017-12-18] MEDS: ALBUTEROL SULFATE 2.5 MG/ 0.5 ML NEBU NEB SCH ×4 (07:38→19:18)
[2017-12-18] MEDS: IPRATROPIUM BROMIDE 0.5 MG/2.5 ML NEBU NEB SCH ×4 (07:38→19:18)
[2017-12-18] MEDS: ACETYLCYSTEINE 20% 800 MG/4 ML VIAL NEB SCH ×3 (07:38→19:18)
[2017-12-18] MEDS: GLIMEPIRIDE 2 MG TABLET PO SCH ×2 (08:00→17:36)
[2017-12-18] MEDS: NITROGLYCERIN 0.1 MG/HR (=4 CM2) PATCH TD SCH (08:34)
[2017-12-18] MEDS: FUROSEMIDE 20 MG/2 ML VIAL IVP SCH ×2 (08:34→17:36)
[2017-12-18] MEDS: ASPIRIN EC 81 MG TABLET.DR PO SCH (08:34)
[2017-12-18] MEDS: LACTOBACILLUS RHAMNOSUS GG 1 EACH CAPSULE PO SCH ×2 (08:34→21:28)
[2017-12-18] MEDS: OMEGA-3 FATTY ACIDS/FISH OIL CAPSULE PO SCH ×2 (08:34→21:28)
[2017-12-18] MEDS: EZETIMIBE 10 MG TABLET PO SCH (08:34)
[2017-12-18] MEDS: BETAMET DP 0.05% AUGM CR 15 GM CREAM.GM. TOP SCH (08:42)
[2017-12-18] MEDS: Z GUARD REMEDY PASTE 57 GM TUBE TOP SCH ×2 (08:42→21:34)
[2017-12-18] MEDS: CARVEDILOL 25 MG TABLET PO SCH ×2 (08:43→17:37)
[2017-12-18] MEDS: LINAGLIPTIN 5 MG TABLET PO SCH (09:00)
--- NOTE | 2017-12-18 09:00 | NUR ---
HELD DIABETIC MEDS ECAUSE BLOOD SUGAR IS ALWAYS IN THE LOW 50'S. PEGGY VOSS IS AWARE.
--- NOTE | 2017-12-18 09:30 | NUR ---
SEEN AND EXAMINED BY DR LUONG WITH NEW ORDER.
--- NOTE | 2017-12-18 11:01 | NUR ---
Clinical Pharmacy Note: Vancomycin Pharmacy to Dose Subjective: To continue vanco in this 62 y/o morbidly obese male for indication of pna/early sepsis Objective: weight 112kg height 167 cm BMI 40 BUN 40 Scr 4.9 (not HD yet) Wbc 15.1 temp 98.4 Assessment/Plan Due to reduced renal fxn, continue to dose per level for now. Vancomycin 1500mg iv x1 was given on 12/17 at 1000. Ordered random level on 12/19 with am labs. Will check level and dose as appropriate. Will follow.
--- NOTE | 2017-12-18 11:20 | NUR ---
SEEN AND EXAMINED BY DR MARIPOSA BRYAN NEW ORDERS.
--- NOTE | 2017-12-18 11:30 | NUR ---
PHYSICAL THERAPIST IN AND DANGLED PT IN PT. EASILY GETS SOB AND O2SAT IS GOING DOWN THE THE HIGH 80. WILL CONTINUE TO INCREASE PHYSICAL ACTIVITY.
[2017-12-18] MEDS: methylPREDNISolone SOD SUCC 40 MG/ML VIAL IV SCH ×3 (11:59→21:32)
[2017-12-18] MEDS: HEPARIN SODIUM,PORCINE 5,000 UNITS/ML VIAL SQ SCH ×2 (13:39→21:31)
--- NOTE | 2017-12-18 14:00 | NUR ---
PT IS SLEEPING ON AND OFF. NO APPARENT DISTRESS NOTED.
[2017-12-18] MEDS: ALBUTEROL SULFATE 1.25 MG/3 ML NEBU NEB PRN (16:12)
--- NOTE | 2017-12-18 17:30 | NUR ---
AT THE BEDSIDE. PM CARE RENDERED. CONDITION IS UNCHANGED.
[2017-12-18] MEDS: DOCUSATE SODIUM 100 MG CAPSULE PO SCH (21:27)
[2017-12-18] MEDS: ATORVASTATIN 20 MG TABLET PO SCH (21:29)
[2017-12-18] MEDS: INSULIN REGULAR, HUMAN 300 UNIT/3 ML VIAL SQ PRN (21:32)
[2017-12-19] VITALS (8 sets, daily range): BP systolic 149–182; BP diastolic 52–75
[2017-12-19] MEDS: PIPERACILLIN/TAZOBACTAM/D5W 2.25 G in PREMIXED 1 EACH IV SCH ×5 (00:17→23:35)
[2017-12-19 05:17] LABS: BASOPHILS % (AUTO) 0.2 % (0.0-2.0); HEMATOCRIT 34.6 % (36.7-47.1); HEMOGLOBIN 11.2 g/dL (12.5-16.3); LYMPHOCYTES # (AUTO) 1.1 K/uL (20.0-40.0); LYMPHOCYTES % (AUTO) 6.5 % (20.5-51.5); MEAN CORPUSCULAR HEMOGLOBIN 25.5 uug (23.8-33.4); MEAN CORPUSCULAR HGB CONC 32 g/dL (32.5-36.3); MEAN CORPUSCULAR VOLUME 78.9 fL (73.0-96.2); MONOCYTES # (AUTO) 0.2 K/uL (2.0-10.0); NEUTROPHILS % (AUTO) 92.3 % (38.5-71.5); PLATELET COUNT (AUTO) 313 K/uL (152-348); RED BLOOD CELL COUNT(AUTO) 4.39 MIL/uL (4.06-5.63); WHITE BLOOD COUNT (AUTO) 16.2 K/uL (3.6-10.2)
[2017-12-19 05:27] LABS: CREATININE 4.7 mg/dL (0.6-1.3); MAGNESIUM 2.2 mg/dL (1.8-2.4); PHOSPHOROUS 5.7 mg/dL (2.5-4.9); POTASSIUM 3.4 mmol/L (3.5-5.1); VANCOMYCIN,RANDOM 20.6 ug/mL (18.0-26.0)
[2017-12-19] MEDS: hydrALAZINE HCL 50 MG TABLET PO SCH ×3 (05:35→21:31)
[2017-12-19] MEDS: methylPREDNISolone SOD SUCC 40 MG/ML VIAL IV SCH ×3 (05:36→21:31)
[2017-12-19] MEDS: BLOOD SUGAR DIAGNOSTIC 1 EACH STRIP VI SCH ×4 (06:30→21:06)
[2017-12-19] MEDS: PANTOPRAZOLE SODIUM 40 MG TABLET.DR PO SCH (06:30)
[2017-12-19] MEDS: INSULIN REGULAR, HUMAN 300 UNIT/3 ML VIAL SQ PRN ×4 (07:48→23:45)
--- NOTE | 2017-12-19 07:51 | NUR ---
rosangela 199, covered with 3 units humulin R SQ Addendum: 12/19/17 at 0751 by MARTIN LOZOYA RN Amended: Links added.
[2017-12-19] MEDS: ALBUTEROL SULFATE 2.5 MG/ 0.5 ML NEBU NEB SCH ×5 (08:06→23:08)
[2017-12-19] MEDS: IPRATROPIUM BROMIDE 0.5 MG/2.5 ML NEBU NEB SCH ×4 (08:06→19:27)
[2017-12-19] MEDS: ACETYLCYSTEINE 20% 800 MG/4 ML VIAL NEB SCH ×3 (08:06→23:09)
[2017-12-19] MEDS: LINAGLIPTIN 5 MG TABLET PO SCH (08:11)
[2017-12-19] MEDS: GLIMEPIRIDE 2 MG TABLET PO SCH ×2 (08:11→17:15)
[2017-12-19] MEDS: CARVEDILOL 25 MG TABLET PO SCH ×2 (08:12→17:15)
[2017-12-19] MEDS: ASPIRIN EC 81 MG TABLET.DR PO SCH (08:12)
[2017-12-19] MEDS: FUROSEMIDE 20 MG/2 ML VIAL IVP SCH ×2 (08:12→17:15)
[2017-12-19] MEDS: LACTOBACILLUS RHAMNOSUS GG 1 EACH CAPSULE PO SCH ×2 (08:12→20:47)
[2017-12-19] MEDS: OMEGA-3 FATTY ACIDS/FISH OIL CAPSULE PO SCH ×2 (08:12→20:47)
[2017-12-19] MEDS: EZETIMIBE 10 MG TABLET PO SCH (08:12)
[2017-12-19] MEDS: BETAMET DP 0.05% AUGM CR 15 GM CREAM.GM. TOP SCH (08:14)
[2017-12-19] MEDS: NITROGLYCERIN 0.1 MG/HR (=4 CM2) PATCH TD SCH (08:14)
[2017-12-19] MEDS: HEPARIN SODIUM,PORCINE 5,000 UNITS/ML VIAL SQ SCH ×2 (08:16→20:53)
[2017-12-19] MEDS: Z GUARD REMEDY PASTE 57 GM TUBE TOP SCH ×2 (08:20→20:48)
[2017-12-19] MEDS: hydrALAZINE HCL 20 MG/1 ML VIAL IV PRN ×2 (11:35→17:16)
[2017-12-19] MEDS: NORMAL SALINE FLUSH 10 ML DISP.SYRIN IV PRN (11:36)
--- NOTE | 2017-12-19 11:42 | NUR ---
medicated with apresoline IV for hpertension. 177/75 Addendum: 12/19/17 at 1142 by MARTIN LOZOYA RN Amended: Links added.
--- NOTE | 2017-12-19 12:03 | NUR ---
ACCUCHLUIS ALBERTO 220, covered with 4 units humulin R SQ Addendum: 12/19/17 at 1203 by MARTIN LOZOYA RN Amended: Links added.
--- NOTE | 2017-12-19 12:39 | NUR ---
Clinical Pharmacy Note: Vancomycin Pharmacy to Dose Subjective: To continue vanco in this 62 y/o morbidly obese male for indication of pna (possible CAP/early sepsis) Objective: weight 112kg height 167 cm BMI 40 BUN 53 Scr 4.7 (not HD yet) Wbc 16.2 temp 98.8 Vanco random level: 20.6 (with am labs) Assessment/Plan Due to reduced renal fxn, continue to dose per level for now. Since vanco random level is above therapeutic range, no dose shall be due today. Ordered random level on 12/20 with am labs. Will check level and dose as appropriate. Will follow.
[2017-12-19] MEDS: NORMAL SALINE FLUSH 10 ML DISP.SYRIN IV SCH ×2 (14:42→20:49)
--- NOTE | 2017-12-19 14:49 | NUR ---
RN called to the room. upset that nobody doing anything for her . explained to that patient was offered several times to be fed at breakfast and at lunch and also bed bath but patient refused and said is supposed to come and do all these things. again RN was called to the room, expressed desire to transfer patient to [facility]. case mgr and meteorologist in charge informed. wanted to know what was going on with patients status. explained to still being treated for congestion and pneumonia. and hypertension. Addendum: 12/19/17 at 1450 by MARTIN LOZOYA RN Amended: Links added.
--- NOTE | 2017-12-19 17:25 | NUR ---
rosangela 242, covered with 4 units Kristine SQ Addendum: 12/19/17 at 1727 by MARTIN LOZOYA RN Amended: Links added.
--- NOTE | 2017-12-19 17:28 | NUR ---
medicated with IV hydralazine for bp 180/65
[2017-12-19] MEDS: ATORVASTATIN 20 MG TABLET PO SCH (20:47)
[2017-12-19] MEDS: AMLODIPINE 10 MG TABLET PO SCH (20:47)
[2017-12-19] MEDS: DOCUSATE SODIUM 100 MG CAPSULE PO SCH (20:47)
[2017-12-19] MEDS: ACETAMINOPHEN 325 MG TABLET PO PRN (20:48)
--- NOTE | 2017-12-19 21:00 | NUR ---
Received patient awake anxiousness noted w/ BP remains high. No resp distress w/ O2 6 L/mask in use. Sinus rhythm on the monitor. Routine night meds for BP administered, patient tolerated. Assisted w/ needs. Had 2 episodes of large BM.
[2017-12-19] MEDS: IPRATROPIUM BROMIDE 0.5 MG/2.5 ML NEBU NEB PRN (23:08)
[2017-12-19] MEDS: Z GUARD REMEDY PASTE 57 GM TUBE TOP PRN (23:36)
[2017-12-20] VITALS (7 sets, daily range): BP systolic 114–178; BP diastolic 59–68
--- NOTE | 2017-12-20 | NUR ---
Sleeping comfortable, sinus on the monitor.
[2017-12-20 06:06] LABS: *PEU ALPHA-2-GLOBULIN, UR 6.5 % (.); *PEU GAMMA GLOBULIN, UR 9.7 % (.); *PEU PROTEIN, TOTAL, UR 406.6 mg/dL (Not Estab.); *PEUBETA GLOBULIN, UR 12.9 % (.)
[2017-12-20] MEDS: PIPERACILLIN/TAZOBACTAM/D5W 2.25 G in PREMIXED 1 EACH IV SCH ×4 (06:07→23:51)
[2017-12-20] MEDS: methylPREDNISolone SOD SUCC 40 MG/ML VIAL IV SCH ×3 (06:07→21:02)
[2017-12-20] MEDS: hydrALAZINE HCL 50 MG TABLET PO SCH ×3 (06:07→21:01)
[2017-12-20] MEDS: NORMAL SALINE FLUSH 10 ML DISP.SYRIN IV SCH ×3 (06:08→21:12)
[2017-12-20] MEDS: PANTOPRAZOLE SODIUM 40 MG TABLET.DR PO SCH (06:08)
[2017-12-20] MEDS: Z GUARD REMEDY PASTE 57 GM TUBE TOP PRN (06:09)
[2017-12-20] MEDS: BLOOD SUGAR DIAGNOSTIC 1 EACH STRIP VI SCH ×4 (06:23→21:30)
[2017-12-20 06:37] LABS: BASOPHILS % (AUTO) 0.2 % (0.0-2.0); HEMATOCRIT 33.8 % (36.7-47.1); HEMOGLOBIN 10.8 g/dL (12.5-16.3); LYMPHOCYTES % (AUTO) 6.4 % (20.5-51.5); MEAN CORPUSCULAR HEMOGLOBIN 25.1 uug (23.8-33.4); MEAN CORPUSCULAR HGB CONC 32 g/dL (32.5-36.3); MEAN CORPUSCULAR VOLUME 78.3 fL (73.0-96.2); MONOCYTES # (AUTO) 0.6 K/uL (2.0-10.0); MONOCYTES % (AUTO) 3.8 % (0.0-11.0); NEUTROPHILS # (AUTO) 14.7 K/uL (1.8-8.9); NEUTROPHILS % (AUTO) 89.6 % (38.5-71.5); PLATELET COUNT (AUTO) 359 K/uL (152-348); RED BLOOD CELL COUNT(AUTO) 4.31 MIL/uL (4.06-5.63); WHITE BLOOD COUNT (AUTO) 16.4 K/uL (3.6-10.2)
[2017-12-20 07:08] LABS: CREATININE 4.8 mg/dL (0.6-1.3); MAGNESIUM 2.4 mg/dL (1.8-2.4); PHOSPHOROUS 5.1 mg/dL (2.5-4.9); POTASSIUM 3.1 mmol/L (3.5-5.1); VANCOMYCIN,RANDOM 15.7 ug/mL (18.0-26.0)
[2017-12-20] MEDS: IPRATROPIUM BROMIDE 0.5 MG/2.5 ML NEBU NEB SCH ×4 (07:09→18:53)
[2017-12-20] MEDS: ALBUTEROL SULFATE 2.5 MG/ 0.5 ML NEBU NEB SCH ×4 (07:09→18:53)
[2017-12-20] MEDS: ACETYLCYSTEINE 20% 800 MG/4 ML VIAL NEB SCH ×3 (07:09→18:53)
--- NOTE | 2017-12-20 08:00 | NUR ---
Pt unable to move left side on his body but able to feel sensation on toes and fingers. IV on left ac intact. Mask 6liters with sat of 97%. Lung sounds diminished no crackles noted. LE's elevated +1 edema bilateral. slight redness on urine noted. Call light is within reach.
[2017-12-20] MEDS: OMEGA-3 FATTY ACIDS/FISH OIL CAPSULE PO SCH ×2 (08:31→21:01)
[2017-12-20] MEDS: EZETIMIBE 10 MG TABLET PO SCH (08:31)
[2017-12-20] MEDS: LACTOBACILLUS RHAMNOSUS GG 1 EACH CAPSULE PO SCH ×2 (08:31→21:00)
[2017-12-20] MEDS: LINAGLIPTIN 5 MG TABLET PO SCH (08:31)
--- NOTE | 2017-12-20 08:31 | NUR ---
Clinical Pharmacy Note: Vancomycin Pharmacy to Dose Subjective: To continue vanco in this 62 y/o morbidly obese male for indication of pna (possible CAP/early sepsis) Objective: weight 112kg height 167 cm BMI 40 BUN 63 Scr 4.8 (not HD yet) Wbc 16.4 temp 98.5 Vanco random level: 15.7 (with am labs) Assessment/Plan Due to reduced renal fxn, continue to dose per level for now. Since vanco random level is under 20, Vancomycin 1500mg iv x1 will be given today at 1030 . Vancomycin random is on order for 2/17 am. Will reschedule random if renal function changes significantly.
[2017-12-20] MEDS: GLIMEPIRIDE 2 MG TABLET PO SCH ×2 (08:32→17:01)
[2017-12-20] MEDS: ASPIRIN EC 81 MG TABLET.DR PO SCH (08:32)
[2017-12-20] MEDS: FUROSEMIDE 20 MG/2 ML VIAL IVP SCH (08:32)
[2017-12-20] MEDS: HEPARIN SODIUM,PORCINE 5,000 UNITS/ML VIAL SQ SCH ×2 (08:33→21:11)
[2017-12-20] MEDS: INSULIN REGULAR, HUMAN 300 UNIT/3 ML VIAL SQ PRN ×4 (08:35→21:27)
[2017-12-20] MEDS: CARVEDILOL 25 MG TABLET PO SCH ×2 (08:39→17:02)
[2017-12-20] MEDS: AMLODIPINE 10 MG TABLET PO SCH (08:39)
[2017-12-20] MEDS: NITROGLYCERIN 0.1 MG/HR (=4 CM2) PATCH TD SCH (08:41)
[2017-12-20] MEDS: Z GUARD REMEDY PASTE 57 GM TUBE TOP SCH ×2 (08:55→21:12)
[2017-12-20] MEDS: BETAMET DP 0.05% AUGM CR 15 GM CREAM.GM. TOP SCH (08:56)
[2017-12-20] MEDS ORDERED: VANCOMYCIN IV 1,500 MG in IV NORMAL SALINE 500 ML IV ONE (10:30)
[2017-12-20] MEDS ORDERED: POTASSIUM CHLORIDE 20 MEQ POWDER PACKET PO ONE (11:30)
[2017-12-20] MEDS: BUMETANIDE 1 MG TABLET PO SCH (12:36)
--- NOTE | 2017-12-20 18:30 | NUR ---
Pt tolerated physical therapy earlier. Pt denies any c/o pain. SBP now on 110's. Pt tolerated mask 6liters. Call light is within reach.
--- NOTE | 2017-12-20 20:00 | NUR ---
RECEIVED PT RESTING IN BED WITH HOB ELEVATED. NO S/S OF DISTRESS NOTED AT THIS TIME. TELE MONITOR NOTED TO BE SINUS RHYTHM WITH HR AT 85. BED IN LOW, LOCKED POSITION. CALL LIGHT WITHIN REACH.
[2017-12-20] MEDS: DOCUSATE SODIUM 100 MG CAPSULE PO SCH (21:00)
[2017-12-20] MEDS: ATORVASTATIN 20 MG TABLET PO SCH (21:00)
[2017-12-21 00:11] VITALS: BP 189/67
[2017-12-21] MEDS: MORPHINE SULFATE 4 MG/1 ML DISP.SYRIN IV PRN ×2 (01:20→05:17)
[2017-12-21] MEDS: NORMAL SALINE FLUSH 10 ML DISP.SYRIN IV SCH ×3 (05:16→21:41)
[2017-12-21] MEDS: hydrALAZINE HCL 50 MG TABLET PO SCH ×3 (05:21→21:42)
[2017-12-21] MEDS: PIPERACILLIN/TAZOBACTAM/D5W 2.25 G in PREMIXED 1 EACH IV SCH ×3 (06:17→17:29)
[2017-12-21] MEDS: PANTOPRAZOLE SODIUM 40 MG TABLET.DR PO SCH (06:17)
[2017-12-21 06:25] LABS: BASOPHILS % (AUTO) 0.1 % (0.0-2.0); HEMATOCRIT 33.1 % (36.7-47.1); HEMOGLOBIN 10.9 g/dL (12.5-16.3); LYMPHOCYTES # (AUTO) 1.1 K/uL (20.0-40.0); LYMPHOCYTES % (AUTO) 7.2 % (20.5-51.5); MEAN CORPUSCULAR HEMOGLOBIN 25.8 uug (23.8-33.4); MEAN CORPUSCULAR HGB CONC 33 g/dL (32.5-36.3); MEAN CORPUSCULAR VOLUME 78.3 fL (73.0-96.2); MONOCYTES # (AUTO) 1.1 K/uL (2.0-10.0); MONOCYTES % (AUTO) 6.8 % (0.0-11.0); NEUTROPHILS # (AUTO) 13.2 K/uL (1.8-8.9); NEUTROPHILS % (AUTO) 85.9 % (38.5-71.5); PLATELET COUNT (AUTO) 370 K/uL (152-348); RED BLOOD CELL COUNT(AUTO) 4.22 MIL/uL (4.06-5.63); WHITE BLOOD COUNT (AUTO) 15.4 K/uL (3.6-10.2)
--- NOTE | 2017-12-21 06:30 | NUR ---
Pt in a stable condition. No s/s of distress. No SOB. Pain managed. Tele noted to be sinus rhythm with HR in the 80's.
[2017-12-21 06:33] LABS: BILIRUBIN,TOTAL 0.4 mg/dL (0.2-1.0); CREATININE 4.6 mg/dL (0.6-1.3); MAGNESIUM 2.4 mg/dL (1.8-2.4); PHOSPHOROUS 4.9 mg/dL (2.5-4.9); POTASSIUM 3.3 mmol/L (3.5-5.1); TOTAL PROTEIN, SERUM 6.1 g/dL (6.4-8.2)
[2017-12-21] MEDS: BLOOD SUGAR DIAGNOSTIC 1 EACH STRIP VI SCH ×4 (06:36→20:39)
[2017-12-21 07:18] LABS: LYMPHOCYTES % (MANUAL) 13 % (20-40); MONOCYTES % (MANUAL) 6 % (2-10); NEUTROPHILS % (MANUAL) 81 % (42-75)
[2017-12-21] MEDS: ACETYLCYSTEINE 20% 800 MG/4 ML VIAL NEB SCH ×3 (07:23→23:40)
[2017-12-21] MEDS: ALBUTEROL SULFATE 2.5 MG/ 0.5 ML NEBU NEB SCH ×4 (07:23→19:32)
[2017-12-21] MEDS: IPRATROPIUM BROMIDE 0.5 MG/2.5 ML NEBU NEB SCH ×4 (07:24→19:32)
--- NOTE | 2017-12-21 07:56 | NUR ---
Awake, alert, oriented x 3, on moderate high back rest. O2 at 6L/mask.
[2017-12-21] MEDS ORDERED: POTASSIUM CHLORIDE 10 MEQ TAB.PRT.SR PO ONE (08:15)
[2017-12-21] MEDS: GLIMEPIRIDE 2 MG TABLET PO SCH ×2 (09:48→17:29)
[2017-12-21] MEDS: LACTOBACILLUS RHAMNOSUS GG 1 EACH CAPSULE PO SCH ×2 (09:49→20:42)
[2017-12-21] MEDS: AMLODIPINE 10 MG TABLET PO SCH (09:49)
[2017-12-21] MEDS: BUMETANIDE 1 MG TABLET PO SCH (09:49)
[2017-12-21] MEDS: CARVEDILOL 25 MG TABLET PO SCH ×2 (09:49→17:39)
[2017-12-21] MEDS: LINAGLIPTIN 5 MG TABLET PO SCH (09:49)
[2017-12-21] MEDS: methylPREDNISolone SOD SUCC 40 MG/ML VIAL IV SCH ×2 (09:49→20:54)
[2017-12-21] MEDS: HEPARIN SODIUM,PORCINE 5,000 UNITS/ML VIAL SQ SCH ×2 (09:50→20:42)
[2017-12-21] MEDS: EZETIMIBE 10 MG TABLET PO SCH (09:50)
[2017-12-21] MEDS: ASPIRIN EC 81 MG TABLET.DR PO SCH (09:52)
[2017-12-21] MEDS: Z GUARD REMEDY PASTE 57 GM TUBE TOP SCH ×2 (09:52→20:42)
[2017-12-21] MEDS: OMEGA-3 FATTY ACIDS/FISH OIL CAPSULE PO SCH ×2 (09:52→20:42)
[2017-12-21] MEDS: BETAMET DP 0.05% AUGM CR 15 GM CREAM.GM. TOP SCH (09:52)
[2017-12-21] MEDS: INSULIN REGULAR, HUMAN 300 UNIT/3 ML VIAL SQ PRN ×4 (09:54→20:41)
--- NOTE | 2017-12-21 10:08 | NUR ---
Clinical Pharmacy Note: Vancomycin Pharmacy to Dose Subjective: To continue vanco in this 62 y/o morbidly obese male for indication of pna (possible CAP/early sepsis) Objective: weight 112kg height 167 cm BMI 40 BUN 69 Scr 4.6 (not HD yet) Wbc 15.4 temp 98 Assessment/Plan Due to reduced renal fxn, continue to dose per level for now. Last dose of vancomycin 1500mg iv x1 given yesterdayt 12/20 at 1030 . Next vancomycin random is on order for 12/23 am. Will reschedule random if renal function changes significantly.
[2017-12-21 11:06] VITALS: BP 195/72
--- NOTE | 2017-12-21 12:00 | NUR ---
O2 at 5L/NC with O2 sat of 88-92%
[2017-12-21] MEDS: CLONIDINE HCL 0.1 MG TABLET PO SCH ×2 (14:10→21:42)
[2017-12-21 15:16] VITALS: BP 160/54
--- NOTE | 2017-12-21 16:59 | NUR ---
With BM again to soft stool, incontinence care done. Repositioned comfortably
--- NOTE | 2017-12-21 19:50 | NUR ---
RECEIVED PATIENT AWAKE IN BED. PATIENT IS A/O X4. PRIMARILY NEPALESE SPEAKING BUT ABLE TO MAKE NEEDS KNOWN. FOR DETAILED INFORMATION, THERESA NEEDS A PRINT LINE OPERATOR. VERY PLEASANT WHEN APPROACHED. VSS. PATIENT DENIES PAIN OR DISCOMFORT. PATIENT IS ON O2 5L NC SATING 89%. DENIES ANY SOB OR RESP. DISTRESS. H/L INTACT AND PATENT, NOTED TO LEFT HAND #22 GAUGE. F/C INTACT AND PATENT. CALL LIGHT IN REACH. ALL NEEDS ATTENDED. WILL CONTINUE TO MONITOR AND ASSESS.
--- NOTE | 2017-12-21 20:15 | NUR ---
ROBE ALARM SIGNAL OPERATOR AT BEDSIDE TO ASSESS AND CONSULT PATIENT FOR A POSSIBLE PERMA-CATH. ALARM SIGNAL OPERATOR AT BEDSIDE TO SPEAK IN DETAIL WITH PATIENT. AND PATIENT ARE NOT SURE ABOUT PERMA-CATH PLACEMENT FOR DIALYSIS ACCESS. INFORMED PER ROBE-ALARM SIGNAL OPERATOR TO KEEP PATIENT ON SCHEDULE AND NPO AFTER MIDNIGHT MD'S WILL FURTHER SPEAK WITH PATIENT AND FAMILY IN DETAIL IN AM. RECRUIT INSTRUCTOR NOTIFIED. ALL NEEDS ATTENDED. WILL CONTINUE TO MONITOR AND ASSESS.
[2017-12-21] MEDS: DOCUSATE SODIUM 100 MG CAPSULE PO SCH (20:42)
[2017-12-21] MEDS: ATORVASTATIN 20 MG TABLET PO SCH (20:43)
[2017-12-21] MEDS: ALBUTEROL SULFATE 1.25 MG/3 ML NEBU NEB PRN (23:40)
[2017-12-21] MEDS: IPRATROPIUM BROMIDE 0.5 MG/2.5 ML NEBU NEB PRN (23:40)
[2017-12-22] MEDS: PIPERACILLIN/TAZOBACTAM/D5W 2.25 G in PREMIXED 1 EACH IV SCH ×5 (00:42→23:13)
[2017-12-22 04:00] VITALS: BP 159/56
[2017-12-22] MEDS: NORMAL SALINE FLUSH 10 ML DISP.SYRIN IV SCH ×3 (05:45→22:06)
[2017-12-22 06:00] LABS: BASOPHILS % (AUTO) 0.3 % (0.0-2.0); HEMATOCRIT 33.3 % (36.7-47.1); HEMOGLOBIN 10.8 g/dL (12.5-16.3); LYMPHOCYTES % (AUTO) 6.1 % (20.5-51.5); MEAN CORPUSCULAR HEMOGLOBIN 25.5 uug (23.8-33.4); MEAN CORPUSCULAR HGB CONC 32 g/dL (32.5-36.3); MEAN CORPUSCULAR VOLUME 78.7 fL (73.0-96.2); MONOCYTES # (AUTO) 0.7 K/uL (2.0-10.0); MONOCYTES % (AUTO) 4.8 % (0.0-11.0); NEUTROPHILS # (AUTO) 13.8 K/uL (1.8-8.9); NEUTROPHILS % (AUTO) 88.8 % (38.5-71.5); PLATELET COUNT (AUTO) 360 K/uL (152-348); RED BLOOD CELL COUNT(AUTO) 4.23 MIL/uL (4.06-5.63); WHITE BLOOD COUNT (AUTO) 15.6 K/uL (3.6-10.2)
[2017-12-22] MEDS: hydrALAZINE HCL 50 MG TABLET PO SCH ×3 (06:06→22:07)
[2017-12-22] MEDS: CLONIDINE HCL 0.1 MG TABLET PO SCH ×3 (06:06→22:06)
[2017-12-22] MEDS: PANTOPRAZOLE SODIUM 40 MG TABLET.DR PO SCH (06:07)
--- NOTE | 2017-12-22 06:25 | NUR ---
PATIENT AWAKE IN BED. KEPT NPO ORDERED PER ROBE-SLIVER CUTTER. DENIES PAIN. REMAINS ON SIMPLE MASK AT 6L. NO RESP. DISTRESS NOTED. SLEPT WELL. CALL LIGHT IN REACH.
[2017-12-22 06:33] LABS: BILIRUBIN,TOTAL 0.5 mg/dL (0.2-1.0); CREATININE 4.6 mg/dL (0.6-1.3); MAGNESIUM 2.5 mg/dL (1.8-2.4); PHOSPHOROUS 5.7 mg/dL (2.5-4.9); POTASSIUM 3.6 mmol/L (3.5-5.1); TOTAL PROTEIN, SERUM 5.6 g/dL (6.4-8.2)
[2017-12-22] MEDS: BLOOD SUGAR DIAGNOSTIC 1 EACH STRIP VI SCH ×4 (06:56→20:49)
[2017-12-22 07:59] LABS: LYMPHOCYTES % (MANUAL) 5 % (20-40); METAMYELOCYTES % 1 % (0-1); MONOCYTES % (MANUAL) 6 % (2-10); MYELOCYTES % 2 % (0-0); NEUTROPHILS % (MANUAL) 86 % (42-75)
[2017-12-22] MEDS: GLIMEPIRIDE 2 MG TABLET PO SCH ×2 (08:00→18:17)
[2017-12-22] MEDS: ACETYLCYSTEINE 20% 800 MG/4 ML VIAL NEB SCH ×3 (08:03→23:13)
[2017-12-22] MEDS: ALBUTEROL SULFATE 2.5 MG/ 0.5 ML NEBU NEB SCH ×4 (08:03→20:25)
[2017-12-22] MEDS: IPRATROPIUM BROMIDE 0.5 MG/2.5 ML NEBU NEB SCH ×4 (08:03→20:25)
[2017-12-22] MEDS: HEPARIN SODIUM,PORCINE 5,000 UNITS/ML VIAL SQ SCH ×2 (08:20→20:50)
[2017-12-22] MEDS: methylPREDNISolone SOD SUCC 40 MG/ML VIAL IV SCH ×2 (08:21→20:38)
[2017-12-22] MEDS: AMLODIPINE 10 MG TABLET PO SCH (08:22)
[2017-12-22] MEDS: CARVEDILOL 25 MG TABLET PO SCH ×2 (08:22→18:15)
[2017-12-22] MEDS: ACETAMINOPHEN 325 MG TABLET PO PRN ×2 (08:34→20:57)
[2017-12-22] MEDS: BETAMET DP 0.05% AUGM CR 15 GM CREAM.GM. TOP SCH (08:38)
[2017-12-22] MEDS: Z GUARD REMEDY PASTE 57 GM TUBE TOP SCH ×2 (08:39→20:50)
[2017-12-22] MEDS: BUMETANIDE 1 MG TABLET PO SCH (09:00)
[2017-12-22] MEDS: LACTOBACILLUS RHAMNOSUS GG 1 EACH CAPSULE PO SCH ×2 (09:00→20:49)
[2017-12-22] MEDS: LINAGLIPTIN 5 MG TABLET PO SCH (09:00)
[2017-12-22] MEDS: EZETIMIBE 10 MG TABLET PO SCH (09:00)
[2017-12-22] MEDS: ASPIRIN EC 81 MG TABLET.DR PO SCH (09:00)
[2017-12-22] MEDS: OMEGA-3 FATTY ACIDS/FISH OIL CAPSULE PO SCH ×2 (09:00→20:57)
[2017-12-22] MEDS ORDERED: IV NORMAL SALINE 1000 ML BAG IV ONE (09:51)
[2017-12-22] MEDS ORDERED: PROPOFOL 200 MG/20 ML BOTTLE IV ONE (09:51)
[2017-12-22 11:06] VITALS: BP 129/49
[2017-12-22] MEDS ORDERED: HEPARIN/NS 500 ML ONE (12:14)
[2017-12-22] MEDS ORDERED: HEPARIN SODIUM,PORCINE 10,000 UNITS/10 ML VIAL ONE (12:14)
[2017-12-22] MEDS ORDERED: BUPIVACAINE 0.25% 30 ML VIAL ONE (12:14)
[2017-12-22] MEDS ORDERED: LIDOCAINE HCL 1% 20 ML VIAL ONE ×2 (12:14→13:39)
--- NOTE | 2017-12-22 13:00 | NUR ---
PATIENT WAS TAKEN TO SURGERY FOR PERMACATH PLACEMENT ACCOMPANIED BY SET UP MECHANIC COATING MACHINES AND . NO S/S OF DISTRESS NOTED. PRE-OP CHECKLIST DONE AND CONSENT DONE AND PLACED ON CHART.
[2017-12-22] MEDS ORDERED: MIDAZOLAM HCL 2 MG/2 ML VIAL ONE (13:08)
[2017-12-22] MEDS ORDERED: FENTANYL CITRATE 100 MCG/2 ML AMPUL ONE (13:08)
--- NOTE | 2017-12-22 13:41 | NUR ---
Clinical Pharmacy Note: Vancomycin Pharmacy to Dose Subjective: To continue vanco in this 62 y/o morbidly obese male for indication of pna (possible CAP/early sepsis) Objective: weight 112kg height 167 cm BMI 40 BUN 77 Scr 4.6 (not HD yet) Wbc 15.6 temp 97.4 Assessment/Plan Due to reduced renal fxn, continue to dose per level for now. Last dose of vancomycin 1500mg iv x1 given on 12/20 at 1030 . Next vancomycin random is on order for 12/23 with am labs. Pharmacy shall review the level when available & dose further if needed
[2017-12-22 14:06] LABS: HEPATITIS A AB, TOTAL Positive (Negative); HEPATITIS B SURFACE AB Reactive (.); HEPATITIS B SURFACE AG Negative (Negative)
[2017-12-22 15:08] VITALS: BP 139/67
[2017-12-22] MEDS: INSULIN REGULAR, HUMAN 300 UNIT/3 ML VIAL SQ PRN ×2 (16:47→20:52)
--- NOTE | 2017-12-22 18:18 | NUR ---
PATIENT WAS ON SURGERY AT THE TIME FOR HIS ANTIBIOTICS, AFTER PATIENT ARRIVAL ZOSYN WAS ADMINISTERED, AND IT WAS INFUSING. ON ROUNDING I CHECKED ANTIBIOTICS AND IT WAS NOT INFUSED FOR SECOND TIME. CHECKED WITH PHARMACY, AND MIKEL STATED TO SKIPPED THE 1800 DOSE AND GIVE THE 0000. 1400 DOSED WAS ADMINISTERED.
--- NOTE | 2017-12-22 20:00 | NUR ---
RECEIVED PATIENT AWAKE IN BED. PERMA-CATH NOTED TO RIGHT UPPER CHEST, INTACT AND PATENT. DENIES PAIN OR DISCOMFORT. ON SIMPLE MASK AT 6L, DENIES SOB. CALL LIGHT IN REACH. ALL NEEDS ATTENDED.
[2017-12-22 20:15] VITALS: BP 116/54
[2017-12-22] MEDS: ATORVASTATIN 20 MG TABLET PO SCH (20:49)
[2017-12-22] MEDS: DOCUSATE SODIUM 100 MG CAPSULE PO SCH (20:51)
[2017-12-23] MEDS: IPRATROPIUM BROMIDE 0.5 MG/2.5 ML NEBU NEB PRN (00:42)
[2017-12-23] MEDS: ALBUTEROL SULFATE 1.25 MG/3 ML NEBU NEB PRN (00:42)
[2017-12-23] MEDS: ACETYLCYSTEINE 20% 800 MG/4 ML VIAL NEB SCH ×4 (00:44→19:11)
[2017-12-23] MEDS: HYDROCODONE/APAP 5-325MG TABLET PO PRN (01:57)
[2017-12-23] MEDS: BLOOD SUGAR DIAGNOSTIC 1 EACH STRIP VI SCH ×5 (02:08→20:44)
[2017-12-23] MEDS: PIPERACILLIN/TAZOBACTAM/D5W 2.25 G in PREMIXED 1 EACH IV SCH (05:25)
[2017-12-23] MEDS: CLONIDINE HCL 0.1 MG TABLET PO SCH ×3 (06:05→21:53)
[2017-12-23] MEDS: hydrALAZINE HCL 50 MG TABLET PO SCH ×3 (06:05→21:53)
[2017-12-23] MEDS: PANTOPRAZOLE SODIUM 40 MG TABLET.DR PO SCH (06:06)
[2017-12-23] MEDS: NORMAL SALINE FLUSH 10 ML DISP.SYRIN IV SCH ×3 (06:06→21:52)
[2017-12-23 06:48] VITALS: BP 136/67
[2017-12-23] MEDS: ALBUTEROL SULFATE 2.5 MG/ 0.5 ML NEBU NEB SCH ×4 (07:28→19:11)
[2017-12-23] MEDS: IPRATROPIUM BROMIDE 0.5 MG/2.5 ML NEBU NEB SCH ×4 (07:28→19:11)
--- NOTE | 2017-12-23 07:31 | NUR ---
RECEIVED PATIENT AWAKE IN BED. PERMA-CATH NOTED TO RIGHT UPPER CHEST, INTACT AND PATENT. DENIES PAIN OR DISCOMFORT. ON SIMPLE MASK AT 6L, DENIES SOB. CALL LIGHT IN REACH. ALL NEEDS ATTENDED. Addendum: 12/23/17 at 0734 by DAVID HERRERA LVN WRONG TIME. PLEASE DISREGARD.
--- NOTE | 2017-12-23 07:34 | NUR ---
PATIENT ASLEEP. SLEPT WELL. NO S/S OF ANY PAIN OR DISCOMFORT. CALL LIGHT IN REACH. ALL NEEDS ATTENDED.
[2017-12-23] MEDS: methylPREDNISolone SOD SUCC 40 MG/ML VIAL IV SCH ×2 (08:04→21:51)
[2017-12-23] MEDS: HEPARIN SODIUM,PORCINE 5,000 UNITS/ML VIAL SQ SCH ×2 (08:04→20:44)
[2017-12-23] MEDS: ASPIRIN EC 81 MG TABLET.DR PO SCH (08:05)
[2017-12-23] MEDS: BUMETANIDE 1 MG TABLET PO SCH (08:05)
[2017-12-23] MEDS: INSULIN REGULAR, HUMAN 300 UNIT/3 ML VIAL SQ PRN ×4 (08:06→20:46)
[2017-12-23] MEDS: OMEGA-3 FATTY ACIDS/FISH OIL CAPSULE PO SCH ×2 (08:06→20:34)
[2017-12-23] MEDS: LINAGLIPTIN 5 MG TABLET PO SCH (08:06)
[2017-12-23] MEDS: LACTOBACILLUS RHAMNOSUS GG 1 EACH CAPSULE PO SCH ×2 (08:06→20:33)
[2017-12-23] MEDS: EZETIMIBE 10 MG TABLET PO SCH (08:07)
[2017-12-23] MEDS: GLIMEPIRIDE 2 MG TABLET PO SCH ×2 (08:07→17:38)
[2017-12-23] MEDS: Z GUARD REMEDY PASTE 57 GM TUBE TOP SCH ×2 (08:08→20:53)
[2017-12-23] MEDS: BETAMET DP 0.05% AUGM CR 15 GM CREAM.GM. TOP SCH (08:08)
[2017-12-23] MEDS: CARVEDILOL 25 MG TABLET PO SCH ×2 (08:21→17:38)
[2017-12-23] MEDS: AMLODIPINE 10 MG TABLET PO SCH (08:21)
--- NOTE | 2017-12-23 08:33 | NUR ---
AWAKE, DENIES DISCOMFORT , ASSISTED FOR BM, TOLERATED WELL. BREAKFAST SERVED , ASSISTED FOR COMFORT.
[2017-12-23 11:00] VITALS: BP 135/46
[2017-12-23] MEDS ORDERED: PIPERACILLIN IV PRN (12:00)
[2017-12-23] MEDS ORDERED: VANCOMYCIN IV 1,500 MG in IV NORMAL SALINE 500 ML IV ONE ×4 (12:00)
[2017-12-23] MEDS ORDERED: NORMAL SALINE IV PRN (12:00)
[2017-12-23] MEDS ORDERED: TAZO IV PRN (12:00)
--- NOTE | 2017-12-23 12:00 | NUR ---
DIALYSIS STARTED ORDERED.
[2017-12-23] MEDS ORDERED: LEVOFLOXACIN 750MG/D5W 750 MG in PREMIXED 1 EACH IV ONE (13:30)
[2017-12-23] MEDS ORDERED: PIPERACILLIN/TAZOBACTAM/D5W 2.25 G in PREMIXED 1 EACH IV SCH (14:00)
--- NOTE | 2017-12-23 14:00 | NUR ---
TOLERATED DIALYSIS WELL, OBTAINED 2L WITHOUT DIFFICULTY. NO DISTRESS NOTED ON PATIENT, AT BEDSIDE, SUPPORTIVE OF PATIENT CARE.
[2017-12-23 15:00] VITALS: BP 157/55
--- NOTE | 2017-12-23 17:00 | NUR ---
RESTING WELL. LEFT , APPRECIATIVE OF PATIENT CARE
--- NOTE | 2017-12-23 18:46 | NUR ---
COMFORTABLE, WATCHING TV DENIES ACUTE PAIN. CONT O2 USE AT 6L.
[2017-12-23 19:30] VITALS: BP 141/52
--- NOTE | 2017-12-23 19:30 | NUR ---
RECEIVED PATIENT IN BED, ALERT ORIENTED, NO SOB NO CHEST PAIN, ON OXYGEN MASK AT 6LPM, OXYGEN SAT 93% TO 95%, COMPLAIN OF MILD PAIN, WILL MEDICATED FOR PAIN, KEPT CLEAN DRY AND COMFORTABLE.
[2017-12-23] MEDS: ACETAMINOPHEN 325 MG TABLET PO PRN (20:32)
[2017-12-23] MEDS: ATORVASTATIN 20 MG TABLET PO SCH (20:33)
[2017-12-23] MEDS: DOCUSATE SODIUM 100 MG CAPSULE PO SCH (20:38)
[2017-12-24 04:29] VITALS: BP 151/73
[2017-12-24] MEDS: ACETAMINOPHEN 325 MG TABLET PO PRN ×2 (05:21→18:49)
[2017-12-24] MEDS: hydrALAZINE HCL 50 MG TABLET PO SCH ×3 (05:39→21:51)
[2017-12-24] MEDS: BLOOD SUGAR DIAGNOSTIC 1 EACH STRIP VI SCH ×5 (05:39→21:06)
[2017-12-24] MEDS: CLONIDINE HCL 0.1 MG TABLET PO SCH ×3 (05:40→21:50)
[2017-12-24] MEDS: NORMAL SALINE FLUSH 10 ML DISP.SYRIN IV SCH ×3 (05:40→21:50)
--- NOTE | 2017-12-24 05:40 | NUR ---
PATIENT MEDICATION APRESOLINE AND CLONIDINE HELD PER DIALYSIS NURSE REQUEST. STATED THAT BETTER TO HOLD THE MEDICATIONS CAUSE PATIENT GETTING DIALYSIS, AND BP CAN DROP TOO LOW IF MEDS GIVEN.
[2017-12-24] MEDS: PANTOPRAZOLE SODIUM 40 MG TABLET.DR PO SCH (06:15)
[2017-12-24 06:29] LABS: BASOPHILS % (AUTO) 0.1 % (0.0-2.0); HEMATOCRIT 31.5 % (36.7-47.1); HEMOGLOBIN 10.3 g/dL (12.5-16.3); LYMPHOCYTES # (AUTO) 0.8 K/uL (20.0-40.0); LYMPHOCYTES % (AUTO) 4.7 % (20.5-51.5); MEAN CORPUSCULAR HEMOGLOBIN 25.4 uug (23.8-33.4); MEAN CORPUSCULAR HGB CONC 33 g/dL (32.5-36.3); MEAN CORPUSCULAR VOLUME 78.1 fL (73.0-96.2); MONOCYTES # (AUTO) 0.8 K/uL (2.0-10.0); MONOCYTES % (AUTO) 4.8 % (0.0-11.0); NEUTROPHILS # (AUTO) 14.9 K/uL (1.8-8.9); NEUTROPHILS % (AUTO) 90.4 % (38.5-71.5); PLATELET COUNT (AUTO) 303 K/uL (152-348); RED BLOOD CELL COUNT(AUTO) 4.04 MIL/uL (4.06-5.63); WHITE BLOOD COUNT (AUTO) 16.5 K/uL (3.6-10.2)
[2017-12-24 06:46] LABS: BILIRUBIN,TOTAL 0.5 mg/dL (0.2-1.0); CREATININE 4.2 mg/dL (0.6-1.3); MAGNESIUM 2.5 mg/dL (1.8-2.4); PHOSPHOROUS 6.8 mg/dL (2.5-4.9); POTASSIUM 3.7 mmol/L (3.5-5.1)
--- NOTE | 2017-12-24 07:30 | NUR ---
still on dialysis, tolerating well. patient denies discomfort.
[2017-12-24] MEDS: ACETYLCYSTEINE 20% 800 MG/4 ML VIAL NEB SCH ×3 (07:49→19:12)
[2017-12-24] MEDS: ALBUTEROL SULFATE 2.5 MG/ 0.5 ML NEBU NEB SCH ×4 (07:49→19:11)
[2017-12-24] MEDS: IPRATROPIUM BROMIDE 0.5 MG/2.5 ML NEBU NEB SCH ×4 (07:49→19:11)
[2017-12-24] MEDS: Z GUARD REMEDY PASTE 57 GM TUBE TOP SCH ×2 (08:43→21:06)
[2017-12-24] MEDS: BETAMET DP 0.05% AUGM CR 15 GM CREAM.GM. TOP SCH (08:44)
[2017-12-24] MEDS: OMEGA-3 FATTY ACIDS/FISH OIL CAPSULE PO SCH ×2 (08:44→20:54)
[2017-12-24] MEDS: LINAGLIPTIN 5 MG TABLET PO SCH (08:44)
[2017-12-24] MEDS: LACTOBACILLUS RHAMNOSUS GG 1 EACH CAPSULE PO SCH ×2 (08:44→20:54)
[2017-12-24] MEDS: EZETIMIBE 10 MG TABLET PO SCH (08:44)
[2017-12-24] MEDS: BUMETANIDE 1 MG TABLET PO SCH (08:44)
[2017-12-24] MEDS: methylPREDNISolone SOD SUCC 40 MG/ML VIAL IV SCH (08:45)
[2017-12-24] MEDS: HEPARIN SODIUM,PORCINE 5,000 UNITS/ML VIAL SQ SCH ×2 (08:45→20:58)
[2017-12-24] MEDS: ASPIRIN EC 81 MG TABLET.DR PO SCH (08:46)
[2017-12-24] MEDS: GLIMEPIRIDE 2 MG TABLET PO SCH ×2 (08:46→17:38)
[2017-12-24] MEDS: CARVEDILOL 25 MG TABLET PO SCH ×2 (08:48→17:39)
[2017-12-24] MEDS: AMLODIPINE 10 MG TABLET PO SCH (08:48)
[2017-12-24 11:41] VITALS: BP 164/54
[2017-12-24] MEDS: INSULIN REGULAR, HUMAN 300 UNIT/3 ML VIAL SQ PRN ×3 (12:01→21:08)
[2017-12-24] MEDS: Z GUARD REMEDY PASTE 57 GM TUBE TOP PRN (12:02)
--- NOTE | 2017-12-24 12:06 | NUR ---
had bm x2 , good pericare provided
--- NOTE | 2017-12-24 13:28 | NUR ---
resting for now, denies distress. stated feeling much better x 2 days now. cont o2 via nasal cannula
--- NOTE | 2017-12-24 15:59 | NUR ---
at bedside, supportive of patient care
[2017-12-24 16:06] VITALS: BP 140/51
[2017-12-24] MEDS: predniSONE 20 MG TABLET PO SCH (17:38)
--- NOTE | 2017-12-24 18:03 | NUR ---
resting well, eating better. breathing better. still with generalized edema, tolerating dialysis well
--- NOTE | 2017-12-24 19:30 | NUR ---
PT IN ROOM ALERT AWAKE IN NO ACUTE DISTRESS. BREATHING TX CURRENTLY INPLACE. ON 5L OXYGEN VIA N/C. NO S/S OF HYPER/HYPOGLYCEMIA NOTED. DENIES ANY PAIN OR SOB AT THIS TIME. PT REMINDED TO ASK FOR ASSISTANCE WHEN NEEDED. NO REACTION TO RECENT [facility] ATB THERAPY. CALL LIGHT PLACED WITHIN REACH. KUN TO MONITOR.
[2017-12-24 20:00] VITALS: BP 152/54
[2017-12-24] MEDS: DOCUSATE SODIUM 100 MG CAPSULE PO SCH (20:54)
[2017-12-24] MEDS: ATORVASTATIN 20 MG TABLET PO SCH (20:54)
[2017-12-24] MEDS: ALBUTEROL SULFATE 1.25 MG/3 ML NEBU NEB PRN (23:50)
[2017-12-24] MEDS: IPRATROPIUM BROMIDE 0.5 MG/2.5 ML NEBU NEB PRN (23:50)
--- NOTE | 2017-12-25 01:00 | NUR ---
PT IN ROOM IN NO RESP DISTRESS. ABLE TO RECEIVE REQUESTED BREATHING TX. HOB ELEVATED 30 DEGREES. CONTINUE TO MONITOR.
[2017-12-25 04:00] VITALS: BP 158/60
[2017-12-25] MEDS: ACETAMINOPHEN 325 MG TABLET PO PRN ×4 (05:15→21:52)
[2017-12-25] MEDS: NORMAL SALINE FLUSH 10 ML DISP.SYRIN IV SCH ×3 (05:15→22:04)
[2017-12-25] MEDS: CLONIDINE HCL 0.1 MG TABLET PO SCH ×3 (05:20→22:00)
[2017-12-25] MEDS: hydrALAZINE HCL 50 MG TABLET PO SCH ×3 (05:20→21:53)
--- NOTE | 2017-12-25 06:00 | NUR ---
PT IN ROOM ALERT AWAKE IN NO RESP DISTRESS. ABLE TO SLEEP WITHOUT DIFFICULTY. OXYGEN SAT NOTED 92% VIA N/C. BP 158/60. ROUTINE BP MEDICATIONS ON HAND. HOB ELEVATED 30 DEGREES AND CALL LIGHT PLACED WITHIN REACH. REMINDED PT OF UPCOMING ROUTINE BREATHING TX AVAILABLE. CONTINUE TO MONITOR.
[2017-12-25] MEDS: PANTOPRAZOLE SODIUM 40 MG TABLET.DR PO SCH (06:09)
[2017-12-25 06:18] LABS: BASOPHILS # (AUTO) 0.1 K/uL (0.0-8.0); BASOPHILS % (AUTO) 0.3 % (0.0-2.0); EOSINOPHILS % (AUTO) 0.1 % (0.0-7.0); HEMATOCRIT 33.7 % (36.7-47.1); HEMOGLOBIN 10.9 g/dL (12.5-16.3); LYMPHOCYTES # (AUTO) 1.1 K/uL (20.0-40.0); LYMPHOCYTES % (AUTO) 5.3 % (20.5-51.5); MEAN CORPUSCULAR HEMOGLOBIN 25.6 uug (23.8-33.4); MEAN CORPUSCULAR HGB CONC 32 g/dL (32.5-36.3); MEAN CORPUSCULAR VOLUME 79.3 fL (73.0-96.2); MONOCYTES # (AUTO) 1.4 K/uL (2.0-10.0); MONOCYTES % (AUTO) 7.2 % (0.0-11.0); NEUTROPHILS # (AUTO) 17.4 K/uL (1.8-8.9); NEUTROPHILS % (AUTO) 87.1 % (38.5-71.5); PLATELET COUNT (AUTO) 277 K/uL (152-348); RED BLOOD CELL COUNT(AUTO) 4.26 MIL/uL (4.06-5.63); WHITE BLOOD COUNT (AUTO) 19.9 K/uL (3.6-10.2)
[2017-12-25 06:30] LABS: CREATININE 3.7 mg/dL (0.6-1.3); MAGNESIUM 2.5 mg/dL (1.8-2.4); PHOSPHOROUS 5.9 mg/dL (2.5-4.9); POTASSIUM 3.9 mmol/L (3.5-5.1)
--- NOTE | 2017-12-25 07:30 | NUR ---
RECEIVED SHIFT REPORT FROM STOVE REFINISHER NURSE. PT IN STABLE CONDITION, NO S/S OF DISTRESS. BED IN LOCKED/LOW POSITION, SIDE RAILS UP X2, BED ALARM ON , CALL LIGHT WITHIN REACH. WILL CONTINUE TO MONITOR.
[2017-12-25] MEDS: BLOOD SUGAR DIAGNOSTIC 1 EACH STRIP VI SCH ×4 (07:46→21:00)
[2017-12-25] MEDS: IPRATROPIUM BROMIDE 0.5 MG/2.5 ML NEBU NEB SCH ×5 (07:51→19:24)
[2017-12-25] MEDS: ALBUTEROL SULFATE 1.25 MG/3 ML NEBU NEB PRN ×4 (07:51→23:23)
[2017-12-25] MEDS: ACETYLCYSTEINE 20% 800 MG/4 ML VIAL NEB SCH ×3 (07:51→23:23)
[2017-12-25] MEDS: ALBUTEROL SULFATE 2.5 MG/ 0.5 ML NEBU NEB SCH ×4 (07:55→19:24)
[2017-12-25] MEDS: CARVEDILOL 25 MG TABLET PO SCH ×2 (08:14→18:03)
[2017-12-25] MEDS: OMEGA-3 FATTY ACIDS/FISH OIL CAPSULE PO SCH ×2 (08:14→21:52)
[2017-12-25] MEDS: EZETIMIBE 10 MG TABLET PO SCH (08:15)
[2017-12-25] MEDS: LINAGLIPTIN 5 MG TABLET PO SCH (08:15)
[2017-12-25] MEDS: AMLODIPINE 10 MG TABLET PO SCH (08:15)
[2017-12-25] MEDS: LACTOBACILLUS RHAMNOSUS GG 1 EACH CAPSULE PO SCH ×2 (08:15→21:52)
[2017-12-25] MEDS: predniSONE 20 MG TABLET PO SCH (08:15)
[2017-12-25] MEDS: ASPIRIN EC 81 MG TABLET.DR PO SCH (08:15)
[2017-12-25] MEDS: GLIMEPIRIDE 2 MG TABLET PO SCH ×2 (08:16→18:03)
[2017-12-25] MEDS: Z GUARD REMEDY PASTE 57 GM TUBE TOP SCH ×2 (08:17→22:04)
[2017-12-25] MEDS: BETAMET DP 0.05% AUGM CR 15 GM CREAM.GM. TOP SCH (08:17)
[2017-12-25] MEDS: HEPARIN SODIUM,PORCINE 5,000 UNITS/ML VIAL SQ SCH ×2 (08:20→21:54)
[2017-12-25] MEDS: INSULIN REGULAR, HUMAN 300 UNIT/3 ML VIAL SQ PRN ×2 (08:22→21:55)
[2017-12-25 09:16] LABS: LYMPHOCYTES % (MANUAL) 11 % (20-40); MONOCYTES % (MANUAL) 2 % (2-10); NEUTROPHILS % (MANUAL) 87 % (42-75)
[2017-12-25 11:32] VITALS: BP 138/47
[2017-12-25 15:30] VITALS: BP 136/61
[2017-12-25] MEDS: LEVOFLOXACIN 500 MG/D5W 500 MG in PREMIXED 1 EACH IV SCH (17:55)
[2017-12-25 20:56] VITALS: BP 125/49
[2017-12-25] MEDS: DOCUSATE SODIUM 100 MG CAPSULE PO SCH (21:00)
[2017-12-25 21:04] VITALS: BP 125/49
[2017-12-25] MEDS: ATORVASTATIN 20 MG TABLET PO SCH (21:52)
[2017-12-25] MEDS: IPRATROPIUM BROMIDE 0.5 MG/2.5 ML NEBU NEB PRN (23:23)
[2017-12-26] MEDS: HYDROCODONE/APAP 5-325MG TABLET PO PRN (03:32)
[2017-12-26 04:00] VITALS: BP 117/40
--- NOTE | 2017-12-26 05:00 | NUR ---
HAND OFF REPORT FROM ROSALBA PILLAI. PT SLEEPING IN BED. IV INTACT AND PATENT WILL CONTINUE TO MONITOR.
[2017-12-26] MEDS: hydrALAZINE HCL 50 MG TABLET PO SCH ×3 (05:26→20:44)
[2017-12-26] MEDS: CLONIDINE HCL 0.1 MG TABLET PO SCH ×3 (05:27→21:39)
[2017-12-26] MEDS: NORMAL SALINE FLUSH 10 ML DISP.SYRIN IV SCH ×3 (05:28→21:35)
[2017-12-26] MEDS: ACETAMINOPHEN 325 MG TABLET PO PRN ×3 (05:33→20:43)
[2017-12-26] MEDS: PANTOPRAZOLE SODIUM 40 MG TABLET.DR PO SCH (06:50)
[2017-12-26 06:52] LABS: BASOPHILS % (AUTO) 0.2 % (0.0-2.0); EOSINOPHILS # (AUTO) 0.1 K/uL (0.0-0.7); EOSINOPHILS % (AUTO) 0.3 % (0.0-7.0); HEMATOCRIT 33.4 % (36.7-47.1); HEMOGLOBIN 10.9 g/dL (12.5-16.3); MEAN CORPUSCULAR HEMOGLOBIN 25.7 uug (23.8-33.4); MEAN CORPUSCULAR HGB CONC 33 g/dL (32.5-36.3); MEAN CORPUSCULAR VOLUME 78.3 fL (73.0-96.2); MONOCYTES # (AUTO) 2.5 K/uL (2.0-10.0); MONOCYTES % (AUTO) 11.3 % (0.0-11.0); NEUTROPHILS # (AUTO) 17.7 K/uL (1.8-8.9); NEUTROPHILS % (AUTO) 79.2 % (38.5-71.5); PLATELET COUNT (AUTO) 284 K/uL (152-348); RED BLOOD CELL COUNT(AUTO) 4.26 MIL/uL (4.06-5.63); WHITE BLOOD COUNT (AUTO) 22.4 K/uL (3.6-10.2)
--- NOTE | 2017-12-26 07:00 | NUR ---
BLOOD SUGAR 51 THEN GIVEN ORANGE JUICE. RECHECKED IT AGAIN AND GOT A RESULT OF 55. ENDORSE TO THE DAYSHIFT NURSE.
[2017-12-26 07:02] LABS: CREATININE 3.3 mg/dL (0.6-1.3); MAGNESIUM 2.3 mg/dL (1.8-2.4); PHOSPHOROUS 5.5 mg/dL (2.5-4.9); POTASSIUM 3.6 mmol/L (3.5-5.1)
[2017-12-26] MEDS: IPRATROPIUM BROMIDE 0.5 MG/2.5 ML NEBU NEB SCH ×5 (07:30→22:49)
[2017-12-26] MEDS: ALBUTEROL SULFATE 2.5 MG/ 0.5 ML NEBU NEB SCH ×5 (07:30→22:49)
[2017-12-26] MEDS: ACETYLCYSTEINE 20% 800 MG/4 ML VIAL NEB SCH ×3 (07:31→22:49)
--- NOTE | 2017-12-26 07:34 | NUR ---
RECEIVED SHIFT REPORT FROM LAND RESOURCE SPECIALIST NURSE. PT RESTING COMFORTABLY IN BED, STABLE CONDITION, NO S/S OF DISTRESS. BLOOD SUGAR IS LOW AT 55 AND WILL RECHECK. PATIENT GIVEN ORANGE JUICE. WILL CONTINUE TO MONITOR.
[2017-12-26] MEDS: BLOOD SUGAR DIAGNOSTIC 1 EACH STRIP VI SCH ×5 (07:44→20:43)
[2017-12-26] MEDS: AMLODIPINE 10 MG TABLET PO SCH (08:05)
[2017-12-26] MEDS: ASPIRIN EC 81 MG TABLET.DR PO SCH (08:05)
[2017-12-26] MEDS: LACTOBACILLUS RHAMNOSUS GG 1 EACH CAPSULE PO SCH ×2 (08:05→20:43)
[2017-12-26] MEDS: OMEGA-3 FATTY ACIDS/FISH OIL CAPSULE PO SCH ×2 (08:05→20:43)
[2017-12-26] MEDS: EZETIMIBE 10 MG TABLET PO SCH (08:06)
[2017-12-26] MEDS: CARVEDILOL 25 MG TABLET PO SCH ×2 (08:06→17:26)
[2017-12-26] MEDS: predniSONE 20 MG TABLET PO SCH (08:06)
[2017-12-26] MEDS: GLIMEPIRIDE 2 MG TABLET PO SCH (08:06)
[2017-12-26] MEDS: HEPARIN SODIUM,PORCINE 5,000 UNITS/ML VIAL SQ SCH ×2 (08:08→20:48)
[2017-12-26] MEDS: LINAGLIPTIN 5 MG TABLET PO SCH (08:09)
[2017-12-26] MEDS: Z GUARD REMEDY PASTE 57 GM TUBE TOP SCH ×2 (08:45→21:35)
[2017-12-26] MEDS: BETAMET DP 0.05% AUGM CR 15 GM CREAM.GM. TOP SCH (08:45)
[2017-12-26 11:22] VITALS: BP 137/52
[2017-12-26] MEDS: INSULIN REGULAR, HUMAN 300 UNIT/3 ML VIAL SQ PRN ×3 (12:00→20:49)
[2017-12-26 15:50] VITALS: BP 141/45
--- NOTE | 2017-12-26 18:47 | NUR ---
PATIENT RESTING COMFORTABLY IN BED AT THIS TIME, NO S/S OF DISTRESS, STABLE CONDITION, CALL LIGHT WITHIN REACH. HAS BEEN COOPERATIVE THROUGHOUT SHIFT. CASE MANAGEMENT WORKING ON PLACEMENT FOR [facility]AB[facility] FOR PT. TAPERING PT'S O2 DOWN TO 4L NC. GOAL IS TO GET O2 SATURATION BETWEEN 90-92% PER MD ORDERS. SKIN CARE PROVIDED.
--- NOTE | 2017-12-26 19:45 | NUR ---
Received patient AAO, able to make needs known. Pleasant and cooperative. NAD noted.
[2017-12-26] MEDS: Z GUARD REMEDY PASTE 57 GM TUBE TOP PRN (20:40)
--- NOTE | 2017-12-26 20:40 | NUR ---
C/o headache. Medicated with Tylenol.
[2017-12-26] MEDS: ATORVASTATIN 20 MG TABLET PO SCH (20:43)
[2017-12-26 20:49] VITALS: BP 167/59
[2017-12-26] MEDS: DOCUSATE SODIUM 100 MG CAPSULE PO SCH (20:52)
--- NOTE | 2017-12-26 22:30 | NUR ---
Turned and repositioned; skin care provided. Patient cooperative. )2 decreased to 3 L NC by RT. Sat 98%.
[2017-12-27 03:00] VITALS: BP 152/50
[2017-12-27 04:00] VITALS: BP 157/57
--- NOTE | 2017-12-27 04:00 | NUR ---
R subclavian perma cath dressing with small amounts of bleeding. Also noted patient has slightly pink urine. Will continue to monitor. Perma cath dressing changed aseptically. With small bruises noted around site.
[2017-12-27] MEDS: ACETAMINOPHEN 325 MG TABLET PO PRN (04:01)
[2017-12-27] MEDS: NORMAL SALINE FLUSH 10 ML DISP.SYRIN IV SCH ×3 (05:46→22:09)
[2017-12-27] MEDS: CLONIDINE HCL 0.1 MG TABLET PO SCH ×3 (05:47→22:08)
[2017-12-27] MEDS: hydrALAZINE HCL 50 MG TABLET PO SCH ×3 (05:47→22:07)
--- NOTE | 2017-12-27 06:00 | NUR ---
No further bleeding from Perma cath site.
[2017-12-27] MEDS: BLOOD SUGAR DIAGNOSTIC 1 EACH STRIP VI SCH ×4 (06:33→20:34)
[2017-12-27] MEDS: Z GUARD REMEDY PASTE 57 GM TUBE TOP PRN (06:34)
[2017-12-27] MEDS: PANTOPRAZOLE SODIUM 40 MG TABLET.DR PO SCH (06:35)
[2017-12-27 06:41] LABS: BASOPHILS % (AUTO) 0.2 % (0.0-2.0); EOSINOPHILS # (AUTO) 0.1 K/uL (0.0-0.7); EOSINOPHILS % (AUTO) 0.4 % (0.0-7.0); HEMATOCRIT 33.4 % (36.7-47.1); LYMPHOCYTES % (AUTO) 9.5 % (20.5-51.5); MEAN CORPUSCULAR HEMOGLOBIN 26.1 uug (23.8-33.4); MEAN CORPUSCULAR HGB CONC 33 g/dL (32.5-36.3); MEAN CORPUSCULAR VOLUME 79.2 fL (73.0-96.2); MONOCYTES % (AUTO) 9.7 % (0.0-11.0); NEUTROPHILS # (AUTO) 16.6 K/uL (1.8-8.9); NEUTROPHILS % (AUTO) 80.2 % (38.5-71.5); PLATELET COUNT (AUTO) 260 K/uL (152-348); RED BLOOD CELL COUNT(AUTO) 4.22 MIL/uL (4.06-5.63); WHITE BLOOD COUNT (AUTO) 20.7 K/uL (3.6-10.2)
[2017-12-27 07:01] LABS: BILIRUBIN,TOTAL 0.5 mg/dL (0.2-1.0); CREATININE 3.6 mg/dL (0.6-1.3); MAGNESIUM 2.4 mg/dL (1.8-2.4); POTASSIUM 3.8 mmol/L (3.5-5.1); TOTAL PROTEIN, SERUM 5.2 g/dL (6.4-8.2)
[2017-12-27] MEDS: ACETYLCYSTEINE 20% 800 MG/4 ML VIAL NEB SCH ×4 (07:09→22:39)
[2017-12-27] MEDS: ALBUTEROL SULFATE 2.5 MG/ 0.5 ML NEBU NEB SCH ×6 (07:09→22:39)
[2017-12-27] MEDS: IPRATROPIUM BROMIDE 0.5 MG/2.5 ML NEBU NEB SCH ×6 (07:09→22:39)
[2017-12-27 08:07] LABS: HEPATITIS B SURFACE AB Reactive (.); HEPATITIS B SURFACE AG Negative (Negative)
[2017-12-27] MEDS: HYDROCODONE/APAP 5-325MG TABLET PO PRN (08:21)
[2017-12-27] MEDS: ASPIRIN EC 81 MG TABLET.DR PO SCH (08:21)
[2017-12-27] MEDS: CARVEDILOL 25 MG TABLET PO SCH ×2 (08:22→17:20)
[2017-12-27] MEDS: EZETIMIBE 10 MG TABLET PO SCH (08:22)
[2017-12-27] MEDS: predniSONE 20 MG TABLET PO SCH (08:22)
[2017-12-27] MEDS: LINAGLIPTIN 5 MG TABLET PO SCH (08:22)
[2017-12-27] MEDS: LACTOBACILLUS RHAMNOSUS GG 1 EACH CAPSULE PO SCH ×2 (08:22→20:34)
[2017-12-27] MEDS: OMEGA-3 FATTY ACIDS/FISH OIL CAPSULE PO SCH ×2 (08:22→20:34)
[2017-12-27] MEDS: BUMETANIDE 1 MG TABLET PO SCH (08:23)
[2017-12-27] MEDS: AMLODIPINE 10 MG TABLET PO SCH (08:23)
[2017-12-27] MEDS: HEPARIN SODIUM,PORCINE 5,000 UNITS/ML VIAL SQ SCH ×2 (08:24→20:38)
--- NOTE | 2017-12-27 08:30 | NUR ---
AWAKE ALERT COOPERATE WELL RESTING WITH CALL LIGHT IN REACH AND BED ALARM ON
[2017-12-27] MEDS: BETAMET DP 0.05% AUGM CR 15 GM CREAM.GM. TOP SCH (08:36)
[2017-12-27] MEDS: Z GUARD REMEDY PASTE 57 GM TUBE TOP SCH (08:37)
[2017-12-27 11:29] VITALS: BP 137/50
[2017-12-27] MEDS: INSULIN REGULAR, HUMAN 300 UNIT/3 ML VIAL SQ PRN ×3 (12:39→20:38)
--- NOTE | 2017-12-27 14:12 | NUR ---
WOUND CARE CONSULT: PT PRESENTS WITH RASH TO BUTTOCKS AND PERINEAL AREAS PRESENT ON ADMISSION. PT NOTED TO HAVE 4+ PITTING EDEMA TO LEFT FOOT. PT HAS VERY FRAGILE SKIN WITH SOME PEELING NOTED TO GROIN AREAS. RECOMMENDATIONS MADE FOR SKIN PROTECTION AND SKIN CARE. DISCUSSED WITH NURSING STAFF. PT ON FIRST STEP MATTRESS. ALL SKIN PROTECTION MEASURES IN PLACE. WILL SEE PRN. SANDHU IN AGREEMENT WITH PLAN OF CARE. Addendum: 12/27/17 at 1418 by DEION OSEGUERA RN Amended: Links added.
[2017-12-27] MEDS: LEVOFLOXACIN 500 MG/D5W 500 MG in PREMIXED 1 EACH IV SCH (15:32)
[2017-12-27 15:43] VITALS: BP 137/47
[2017-12-27] MEDS: CLOTRIMAZOLE 1% CREAM 30 GM TUBE TOP SCH (17:23)
--- NOTE | 2017-12-27 17:30 | NUR ---
STABLE HEMODYNAMIC STATUS ,PAIN UNDER CONTROL NO ACUTE DISTRESS ON FALL /ASPIRATION PRECAUTION SAFETY MEASURE PROVIDED
--- NOTE | 2017-12-27 19:30 | NUR ---
Report received. Patient SHREE, amado, no acute distress noted. Dialysis in progress. Addendum: 12/27/17 at 2013 by MARIANA BURKS RN Amended: Links added.
[2017-12-27 20:15] VITALS: BP 148/67
[2017-12-27] MEDS: ATORVASTATIN 20 MG TABLET PO SCH (20:34)
[2017-12-27] MEDS: DOCUSATE SODIUM 100 MG CAPSULE PO SCH (20:43)
--- NOTE | 2017-12-27 22:00 | NUR ---
Dialysis completed; 3L out as per RN. Weight post dialysis = 219 lbs. PM care rendered. Patient tolerated care fairly well.
[2017-12-28 04:44] VITALS: BP 137/53
[2017-12-28] MEDS: BLOOD SUGAR DIAGNOSTIC 1 EACH STRIP VI SCH ×4 (06:08→20:29)
[2017-12-28] MEDS: CLONIDINE HCL 0.1 MG TABLET PO SCH ×3 (06:17→22:49)
[2017-12-28] MEDS: hydrALAZINE HCL 50 MG TABLET PO SCH ×3 (06:17→22:49)
[2017-12-28] MEDS: NORMAL SALINE FLUSH 10 ML DISP.SYRIN IV SCH ×3 (06:18→22:50)
--- NOTE | 2017-12-28 06:59 | NUR ---
PATIENT ALERT ORIENTED, NO SOB NO CHEST PAIN, NO COMPLAIN OF PAIN, R CHEST PERMA CATH DRESSING INTACT, NO BLEEDING NOTED, GASTON CATH PATENT DRAINING WITH YELLOW COLOR URINE IN MODERATE AMOUNT, CONT ON HHN TX FOR SOB, OXYGEN SAT WNL, SAT 95% AT 3LITER PER MINUTE, NO S/S OF HYPO/HYPERGLYCEMIA NOTED, KEPT CLEAN AND DRY.
[2017-12-28] MEDS: IPRATROPIUM BROMIDE 0.5 MG/2.5 ML NEBU NEB SCH ×5 (07:15→23:38)
[2017-12-28] MEDS: ACETYLCYSTEINE 20% 800 MG/4 ML VIAL NEB SCH ×3 (07:15→23:38)
[2017-12-28] MEDS: ALBUTEROL SULFATE 2.5 MG/ 0.5 ML NEBU NEB SCH ×5 (07:15→23:38)
[2017-12-28] MEDS: CARVEDILOL 25 MG TABLET PO SCH ×2 (08:00→17:13)
[2017-12-28] MEDS: ASPIRIN EC 81 MG TABLET.DR PO SCH (08:08)
[2017-12-28] MEDS: PANTOPRAZOLE SODIUM 40 MG TABLET.DR PO SCH (08:08)
[2017-12-28] MEDS: LACTOBACILLUS RHAMNOSUS GG 1 EACH CAPSULE PO SCH ×2 (08:08→20:34)
[2017-12-28] MEDS: LINAGLIPTIN 5 MG TABLET PO SCH (08:08)
[2017-12-28] MEDS: BUMETANIDE 1 MG TABLET PO SCH (08:09)
[2017-12-28] MEDS: OMEGA-3 FATTY ACIDS/FISH OIL CAPSULE PO SCH ×2 (08:09→20:50)
[2017-12-28] MEDS: AMLODIPINE 10 MG TABLET PO SCH (08:09)
[2017-12-28] MEDS: predniSONE 10 MG TABLET PO SCH (08:10)
[2017-12-28] MEDS: HEPARIN SODIUM,PORCINE 5,000 UNITS/ML VIAL SQ SCH ×2 (08:13→20:40)
[2017-12-28] MEDS: CLOTRIMAZOLE 1% CREAM 30 GM TUBE TOP SCH ×2 (08:15→17:04)
[2017-12-28] MEDS: BETAMET DP 0.05% AUGM CR 15 GM CREAM.GM. TOP SCH (08:15)
[2017-12-28] MEDS: INSULIN REGULAR, HUMAN 300 UNIT/3 ML VIAL SQ PRN ×4 (08:45→20:42)
--- NOTE | 2017-12-28 08:52 | NUR ---
pt seen on rounding. pt diastolic low. systolic wnl. pt on 3 liters satting at 93% no sob noted. no changes on NIH scale. aware of left sided weakness. pt able to swallow pills whole. blood sugar wnl. no insulin given as ordered. nassar intact. applied cream on legs. offered breakfast. iv site intact. permact seen. no signs of infection. will continue to monitor.
[2017-12-28] MEDS ORDERED: predniSONE 20 MG TABLET PO SCH ×2 (09:00)
[2017-12-28 09:02] LABS: BASOPHILS % (AUTO) 0.2 % (0.0-2.0); EOSINOPHILS # (AUTO) 0.1 K/uL (0.0-0.7); EOSINOPHILS % (AUTO) 0.7 % (0.0-7.0); HEMATOCRIT 33.1 % (36.7-47.1); HEMOGLOBIN 10.8 g/dL (12.5-16.3); LYMPHOCYTES # (AUTO) 2.2 K/uL (20.0-40.0); LYMPHOCYTES % (AUTO) 11.9 % (20.5-51.5); MEAN CORPUSCULAR HEMOGLOBIN 25.6 uug (23.8-33.4); MEAN CORPUSCULAR HGB CONC 33 g/dL (32.5-36.3); MEAN CORPUSCULAR VOLUME 78.5 fL (73.0-96.2); MONOCYTES # (AUTO) 1.7 K/uL (2.0-10.0); MONOCYTES % (AUTO) 9.6 % (0.0-11.0); NEUTROPHILS # (AUTO) 14.1 K/uL (1.8-8.9); NEUTROPHILS % (AUTO) 77.6 % (38.5-71.5); PLATELET COUNT (AUTO) 235 K/uL (152-348); RED BLOOD CELL COUNT(AUTO) 4.21 MIL/uL (4.06-5.63); WHITE BLOOD COUNT (AUTO) 18.1 K/uL (3.6-10.2)
[2017-12-28 09:08] LABS: BILIRUBIN,TOTAL 0.5 mg/dL (0.2-1.0); CREATININE 3.3 mg/dL (0.6-1.3); MAGNESIUM 2.3 mg/dL (1.8-2.4); PHOSPHOROUS 4.3 mg/dL (2.5-4.9); POTASSIUM 4.2 mmol/L (3.5-5.1); TOTAL PROTEIN, SERUM 5.4 g/dL (6.4-8.2)
[2017-12-28 10:05] LABS: BAND % (MANUAL) 1 % (0-10); LYMPHOCYTES % (MANUAL) 13 % (20-40); METAMYELOCYTES % 1 % (0-1); MONOCYTES % (MANUAL) 7 % (2-10); NEUTROPHILS % (MANUAL) 78 % (42-75)
[2017-12-28] MEDS: NORMAL SALINE FLUSH 10 ML DISP.SYRIN IV PRN (11:33)
[2017-12-28 11:43] VITALS: BP 128/42
[2017-12-28] MEDS: ACETAMINOPHEN 325 MG TABLET PO PRN ×2 (13:46→22:47)
--- NOTE | 2017-12-28 15:34 | NUR ---
titrated o2 to 2l. rechecked o2. pt satting at 92%. md delgado states that as long as patient keeps o2 above 90 it is ok. no sob noted. will continue to monitor.
[2017-12-28 15:56] VITALS: BP 144/48
--- NOTE | 2017-12-28 18:16 | NUR ---
pt stable throughout the day. pt able to tolerate 2 liters nc. no sob noted. pt diastolic bp low. with held all bp meds due to low diastolic bp. pt continues to have insulin given as ordered. pt more alert. nih baseline remained the same throughout the shift. applied creams on groin and parish. showed signs of improvement. no signs of obstuction on urine. will endorse to assembler 1st shift nurse.
--- NOTE | 2017-12-28 20:00 | NUR ---
RECEIVED IN BED ALERT ORIENTED, NO SOB NO CHEST PAIN NOTED, GASTON CATH PATENT DRAINING WITH YELLOW COLOR URINE, DENIES PAIN NOR DISCOMFORT, R SIDE CHEST PERMA CATH DRESSING INTACT, CONT TO MONITOR.
[2017-12-28] MEDS: ATORVASTATIN 20 MG TABLET PO SCH (20:34)
[2017-12-28 20:39] VITALS: BP 137/38
[2017-12-28] MEDS: DOCUSATE SODIUM 100 MG CAPSULE PO SCH (20:57)
--- NOTE | 2017-12-28 23:00 | NUR ---
DIALYSIS WAS DONE TAKEN OUT 2500 CC FLUIDS, PATIENT IN STABLE CONDITION, R CHEST PERMA CATH DRESSING INTACT, NO BLEEDING NOTED, MEDICATED FOR PAIN. NO SOB NO CHEST PAIN NOTED, CONT TO MONITOR.
[2017-12-29 05:23] VITALS: BP 135/50
[2017-12-29] MEDS: BLOOD SUGAR DIAGNOSTIC 1 EACH STRIP VI SCH ×4 (05:45→21:26)
[2017-12-29] MEDS: hydrALAZINE HCL 50 MG TABLET PO SCH ×3 (06:00→22:27)
[2017-12-29] MEDS: CLONIDINE HCL 0.1 MG TABLET PO SCH ×3 (06:00→22:26)
[2017-12-29] MEDS: NORMAL SALINE FLUSH 10 ML DISP.SYRIN IV SCH ×3 (06:21→22:27)
[2017-12-29] MEDS: PANTOPRAZOLE SODIUM 40 MG TABLET.DR PO SCH (06:22)
--- NOTE | 2017-12-29 06:23 | NUR ---
PATIENT BP MEDICATIONS FOR 0600 WAS HELD BECAUSE PATIENT IS GOING TO HAVE A DIALYSIS, AND SUPERVISOR LOGGING STAFF SAID THAT BP MIGHT CRUSH. PATIENT SLEPT ON AND OFF LAST NIGHT CONT ON PAIN MEDICATION, OXYGEN SAT WNL CONT TO MONITOR.
[2017-12-29] MEDS: ACETAMINOPHEN 325 MG TABLET PO PRN (06:42)
[2017-12-29 06:51] LABS: BASOPHILS % (AUTO) 0.2 % (0.0-2.0); EOSINOPHILS # (AUTO) 0.3 K/uL (0.0-0.7); EOSINOPHILS % (AUTO) 1.8 % (0.0-7.0); HEMATOCRIT 34.3 % (36.7-47.1); LYMPHOCYTES # (AUTO) 2.5 K/uL (20.0-40.0); LYMPHOCYTES % (AUTO) 14.5 % (20.5-51.5); MEAN CORPUSCULAR HEMOGLOBIN 25.5 uug (23.8-33.4); MEAN CORPUSCULAR HGB CONC 32 g/dL (32.5-36.3); MEAN CORPUSCULAR VOLUME 79.3 fL (73.0-96.2); MONOCYTES # (AUTO) 1.3 K/uL (2.0-10.0); MONOCYTES % (AUTO) 7.3 % (0.0-11.0); NEUTROPHILS # (AUTO) 13.1 K/uL (1.8-8.9); NEUTROPHILS % (AUTO) 76.2 % (38.5-71.5); PLATELET COUNT (AUTO) 252 K/uL (152-348); RED BLOOD CELL COUNT(AUTO) 4.32 MIL/uL (4.06-5.63); WHITE BLOOD COUNT (AUTO) 17.2 K/uL (3.6-10.2)
[2017-12-29 07:03] LABS: CREATININE 3.4 mg/dL (0.6-1.3); PHOSPHOROUS 4.3 mg/dL (2.5-4.9); POTASSIUM 4.4 mmol/L (3.5-5.1)
[2017-12-29] MEDS: IPRATROPIUM BROMIDE 0.5 MG/2.5 ML NEBU NEB SCH ×4 (07:10→19:15)
[2017-12-29] MEDS: ACETYLCYSTEINE 20% 800 MG/4 ML VIAL NEB SCH ×3 (07:10→23:39)
[2017-12-29] MEDS: ALBUTEROL SULFATE 2.5 MG/ 0.5 ML NEBU NEB SCH ×4 (07:10→19:15)
[2017-12-29] MEDS: CARVEDILOL 25 MG TABLET PO SCH ×3 (08:00→17:20)
--- NOTE | 2017-12-29 08:00 | NUR ---
AWAKE ALERT COOPERATE WELL NO PAIN OR SOB RESTING QUIET WITH CALL LIGHT IN REACH AND ON ASPIRATION /FALL PRECAUTION
[2017-12-29] MEDS: OMEGA-3 FATTY ACIDS/FISH OIL CAPSULE PO SCH ×2 (08:24→21:21)
[2017-12-29] MEDS: LACTOBACILLUS RHAMNOSUS GG 1 EACH CAPSULE PO SCH ×2 (08:24→21:22)
[2017-12-29] MEDS: ASPIRIN EC 81 MG TABLET.DR PO SCH (08:24)
[2017-12-29] MEDS: BUMETANIDE 1 MG TABLET PO SCH (08:24)
[2017-12-29] MEDS: LINAGLIPTIN 5 MG TABLET PO SCH (08:24)
[2017-12-29] MEDS: predniSONE 10 MG TABLET PO SCH (08:24)
[2017-12-29] MEDS: BETAMET DP 0.05% AUGM CR 15 GM CREAM.GM. TOP SCH (08:25)
[2017-12-29] MEDS: CLOTRIMAZOLE 1% CREAM 30 GM TUBE TOP SCH ×2 (08:26→17:21)
[2017-12-29 08:27] LABS: MAGNESIUM 2.2 mg/dL (1.8-2.4)
[2017-12-29] MEDS: HEPARIN SODIUM,PORCINE 5,000 UNITS/ML VIAL SQ SCH ×2 (08:28→21:23)
[2017-12-29] MEDS: AMLODIPINE 10 MG TABLET PO SCH ×2 (08:29→12:10)
--- NOTE | 2017-12-29 09:10 | NUR ---
DR RILEY HERE AND PATIENT START HD TODAY MUSHTAQ PROCEDURE WELL FAMILY AT BEDSIDE
--- NOTE | 2017-12-29 10:30 | NUR ---
MED FOR HTN THIS AM HOLD SCEDULE FOR HD TODAY
[2017-12-29 11:30] VITALS: BP 107/50
[2017-12-29] MEDS: INSULIN REGULAR, HUMAN 300 UNIT/3 ML VIAL SQ PRN ×2 (12:18→17:19)
--- NOTE | 2017-12-29 13:00 | NUR ---
HD COMPLETE RESTING WELL TAKE OUT 2600ML FLD
--- NOTE | 2017-12-29 14:00 | NUR ---
OOB UP WITH PT MUSHTAQ WELL STATE FEELING MORE STRONGER
[2017-12-29 15:06] VITALS: BP 113/40
[2017-12-29] MEDS: LEVOFLOXACIN 500 MG/D5W 500 MG in PREMIXED 1 EACH IV SCH (15:45)
[2017-12-29] MEDS: HYDROCODONE/APAP 5-325MG TABLET PO PRN (17:40)
--- NOTE | 2017-12-29 18:00 | NUR ---
RESTING WELL NO ACUTE DISTRESS PAIN UNDER CONTROL SAFETY MEASURE PROVIDED CALL LIGHT IN REACH AND BED ALARM ON
--- NOTE | 2017-12-29 19:20 | NUR ---
RECEIVED PT AWAKE, ALERT AND ORIENTEDX3. PT SHOWS NO SIGNS OF DISTRESS. PT IV PATENT . PT GASTON PATENT AND FUNCTIONING. CALL LIGHT WITHIN REACH. WILL CONTINUE TO MONITOR.
[2017-12-29 19:57] VITALS: BP 103/36
[2017-12-29] MEDS: DOCUSATE SODIUM 100 MG CAPSULE PO SCH (21:22)
[2017-12-29] MEDS: ATORVASTATIN 20 MG TABLET PO SCH (21:22)
[2017-12-29] MEDS: ALBUTEROL SULFATE 1.25 MG/3 ML NEBU NEB PRN (23:39)
[2017-12-30] MEDS: ACETAMINOPHEN 325 MG TABLET PO PRN ×2 (02:55→19:57)
[2017-12-30 04:00] VITALS: BP 134/38
[2017-12-30] MEDS: CLONIDINE HCL 0.1 MG TABLET PO SCH ×3 (05:40→22:00)
[2017-12-30] MEDS: NORMAL SALINE FLUSH 10 ML DISP.SYRIN IV SCH ×3 (05:40→22:01)
[2017-12-30] MEDS: hydrALAZINE HCL 50 MG TABLET PO SCH ×3 (05:41→22:00)
[2017-12-30] MEDS: PANTOPRAZOLE SODIUM 40 MG TABLET.DR PO SCH (06:17)
[2017-12-30] MEDS: BLOOD SUGAR DIAGNOSTIC 1 EACH STRIP VI SCH ×4 (06:32→20:43)
--- NOTE | 2017-12-30 06:50 | NUR ---
PT SLEPT THROUGHOUT THE SHIFT. PT SHOWS NO SIGNS OF DISTRESS. ALL PRESCRIBED MEDICATION GIVEN AND PT TOLERATED IT WELL.PT IV INTACT AND PATENT. PT GASTON INTACT. CALL LIGHT WITHIN REACH. SAFETY AND COMFORT PROVIDED
[2017-12-30 07:14] LABS: BASOPHILS # (AUTO) 0.1 K/uL (0.0-8.0); BASOPHILS % (AUTO) 0.3 % (0.0-2.0); EOSINOPHILS # (AUTO) 0.3 K/uL (0.0-0.7); EOSINOPHILS % (AUTO) 1.9 % (0.0-7.0); HEMATOCRIT 31.5 % (36.7-47.1); HEMOGLOBIN 10.2 g/dL (12.5-16.3); LYMPHOCYTES # (AUTO) 2.2 K/uL (20.0-40.0); LYMPHOCYTES % (AUTO) 12.8 % (20.5-51.5); MEAN CORPUSCULAR HEMOGLOBIN 25.8 uug (23.8-33.4); MEAN CORPUSCULAR HGB CONC 33 g/dL (32.5-36.3); MEAN CORPUSCULAR VOLUME 79.6 fL (73.0-96.2); MONOCYTES # (AUTO) 1.6 K/uL (2.0-10.0); MONOCYTES % (AUTO) 9.7 % (0.0-11.0); NEUTROPHILS # (AUTO) 12.7 K/uL (1.8-8.9); NEUTROPHILS % (AUTO) 75.3 % (38.5-71.5); PLATELET COUNT (AUTO) 194 K/uL (152-348); RED BLOOD CELL COUNT(AUTO) 3.95 MIL/uL (4.06-5.63); WHITE BLOOD COUNT (AUTO) 16.8 K/uL (3.6-10.2)
[2017-12-30] MEDS: ALBUTEROL SULFATE 2.5 MG/ 0.5 ML NEBU NEB SCH ×4 (07:14→19:23)
[2017-12-30] MEDS: IPRATROPIUM BROMIDE 0.5 MG/2.5 ML NEBU NEB SCH ×4 (07:14→19:23)
[2017-12-30] MEDS: ACETYLCYSTEINE 20% 800 MG/4 ML VIAL NEB SCH ×2 (07:14→14:52)
[2017-12-30 07:26] LABS: BILIRUBIN,TOTAL 0.4 mg/dL (0.2-1.0); CREATININE 3.6 mg/dL (0.6-1.3); MAGNESIUM 2.2 mg/dL (1.8-2.4); PHOSPHOROUS 4.5 mg/dL (2.5-4.9); POTASSIUM 4.5 mmol/L (3.5-5.1); TOTAL PROTEIN, SERUM 5.2 g/dL (6.4-8.2)
--- NOTE | 2017-12-30 08:00 | NUR ---
AWAKE COOPERATE NO ACUTE DISTRESS NO SOB OR PAIN STATE WAS TO SLEEP MORE REFUSED BREAKFAST AT THIS TIME RESTING WITH BED ALARM ON AND CALL LIGHT IN REACH
[2017-12-30] MEDS: LINAGLIPTIN 5 MG TABLET PO SCH (08:56)
[2017-12-30] MEDS: predniSONE 5 MG TABLET PO SCH (08:56)
[2017-12-30] MEDS: OMEGA-3 FATTY ACIDS/FISH OIL CAPSULE PO SCH ×2 (08:56→20:42)
[2017-12-30] MEDS: LACTOBACILLUS RHAMNOSUS GG 1 EACH CAPSULE PO SCH ×2 (08:56→20:42)
[2017-12-30] MEDS: BUMETANIDE 1 MG TABLET PO SCH (08:56)
[2017-12-30] MEDS: ASPIRIN EC 81 MG TABLET.DR PO SCH (08:56)
[2017-12-30] MEDS: CARVEDILOL 25 MG TABLET PO SCH ×2 (08:57→16:59)
[2017-12-30] MEDS: AMLODIPINE 10 MG TABLET PO SCH (08:57)
[2017-12-30] MEDS: BETAMET DP 0.05% AUGM CR 15 GM CREAM.GM. TOP SCH (08:58)
[2017-12-30] MEDS: CLOTRIMAZOLE 1% CREAM 30 GM TUBE TOP SCH ×2 (08:58→16:46)
[2017-12-30] MEDS ORDERED: predniSONE 10 MG TABLET PO SCH (09:00)
[2017-12-30] MEDS: HEPARIN SODIUM,PORCINE 5,000 UNITS/ML VIAL SQ SCH ×2 (09:00→20:50)
--- NOTE | 2017-12-30 10:00 | NUR ---
WAKE UP AND EAT BREAKFAST THIS AM REPOSITION Q 2HR
[2017-12-30 11:01] VITALS: BP 116/33
--- NOTE | 2017-12-30 12:30 | NUR ---
REFUSED TO EAT LUNCH INSULIN HOLD AT THIS TIME
[2017-12-30 14:57] VITALS: BP 110/48
--- NOTE | 2017-12-30 16:00 | NUR ---
EAT FOOD FROM HOME THIS EVENING FAMILY AT BEDSIDE
[2017-12-30] MEDS: Z GUARD REMEDY PASTE 57 GM TUBE TOP SCH (16:46)
[2017-12-30] MEDS: INSULIN REGULAR, HUMAN 300 UNIT/3 ML VIAL SQ PRN ×2 (17:01→20:49)
--- NOTE | 2017-12-30 18:00 | NUR ---
HEMODYNAMIC STATUS STABLE NO ACUTE DISTRESS SAFETY MEASURE PROVIDED CALL LIGHT IN REACH SKIN AT TRISHA SCROTUM AREA IMPROVING KEEP CLEAN DRY AND APPLY MEDICINE ORDER
[2017-12-30 20:00] VITALS: BP 110/39
[2017-12-30] MEDS: DOCUSATE SODIUM 100 MG CAPSULE PO SCH (20:42)
[2017-12-30] MEDS: ATORVASTATIN 20 MG TABLET PO SCH (20:42)
[2017-12-31] MEDS: ACETAMINOPHEN 325 MG TABLET PO PRN ×3 (02:37→19:39)
[2017-12-31 04:00] VITALS: BP 139/52
[2017-12-31] MEDS: hydrALAZINE HCL 50 MG TABLET PO SCH ×3 (05:46→21:33)
[2017-12-31] MEDS: CLONIDINE HCL 0.1 MG TABLET PO SCH ×3 (05:46→21:34)
[2017-12-31] MEDS: NORMAL SALINE FLUSH 10 ML DISP.SYRIN IV SCH ×3 (05:46→21:33)
--- NOTE | 2017-12-31 06:17 | NUR ---
Pt slept intermittently through the night. At times asleep, other times awake and sitting in the chair. Reminded pt to use call light for assistance. No significant changes occured overnight. Addendum: 12/31/17 at 0618 by ANNA HOBBS RN Disregard note, documented on wrong patient.
--- NOTE | 2017-12-31 06:18 | NUR ---
Pt slept intermittently through the night. C/O headache and administered PRN Tylenol which was effective. Held BP meds at night and in the AM due to low BP. Accuchecks within desired range.
[2017-12-31] MEDS: PANTOPRAZOLE SODIUM 40 MG TABLET.DR PO SCH (06:35)
[2017-12-31] MEDS: BLOOD SUGAR DIAGNOSTIC 1 EACH STRIP VI SCH ×4 (06:35→21:33)
[2017-12-31] MEDS: IPRATROPIUM BROMIDE 0.5 MG/2.5 ML NEBU NEB SCH ×4 (07:45→19:21)
[2017-12-31] MEDS: ALBUTEROL SULFATE 2.5 MG/ 0.5 ML NEBU NEB SCH ×4 (07:45→19:21)
--- NOTE | 2017-12-31 07:58 | NUR ---
RECEIVED SHIFT REPORT FROM ARM REST BUILDER NURSE. PT RESTING COMFORTABLY IN BED AT THIS TIME, RECEIVING BREATHING TREATMENT BY RT. STABLE CONDITION, NO S/S OF DISTRESS. ON O2 2L NC. CALL LIGHT WITHIN REACH, BED ALARM ON. NO INSULIN NEEDED THIS MORNING.
[2017-12-31] MEDS: CARVEDILOL 25 MG TABLET PO SCH ×2 (08:00→18:17)
[2017-12-31] MEDS: LINAGLIPTIN 5 MG TABLET PO SCH (09:00)
[2017-12-31] MEDS: OMEGA-3 FATTY ACIDS/FISH OIL CAPSULE PO SCH ×2 (09:00→21:33)
[2017-12-31] MEDS: ASPIRIN EC 81 MG TABLET.DR PO SCH (09:00)
[2017-12-31] MEDS: HEPARIN SODIUM,PORCINE 5,000 UNITS/ML VIAL SQ SCH ×2 (09:00→21:28)
[2017-12-31] MEDS: AMLODIPINE 10 MG TABLET PO SCH (09:00)
[2017-12-31] MEDS: predniSONE 5 MG TABLET PO SCH (09:00)
[2017-12-31] MEDS: BETAMET DP 0.05% AUGM CR 15 GM CREAM.GM. TOP SCH (09:00)
[2017-12-31] MEDS: LACTOBACILLUS RHAMNOSUS GG 1 EACH CAPSULE PO SCH ×2 (09:00→21:32)
[2017-12-31] MEDS: BUMETANIDE 1 MG TABLET PO SCH (09:00)
[2017-12-31] MEDS: Z GUARD REMEDY PASTE 57 GM TUBE TOP SCH ×2 (09:38→16:27)
[2017-12-31] MEDS: CLOTRIMAZOLE 1% CREAM 30 GM TUBE TOP SCH ×2 (09:38→16:27)
--- NOTE | 2017-12-31 09:53 | NUR ---
NON-ADMINISTRATION: MORNING MEDICATIONS - PATIENT HAVING DIALYSIS. PATIENT RECEIVING DIALYSIS AT THIS TIME.
[2017-12-31 11:32] VITALS: BP 136/55
[2017-12-31 15:32] VITALS: BP 109/41
[2017-12-31] MEDS: LEVOFLOXACIN 500 MG/D5W 500 MG in PREMIXED 1 EACH IV SCH (16:28)
[2017-12-31 18:00] VITALS: BP 118/58
[2017-12-31 20:00] VITALS: BP 126/46
[2017-12-31] MEDS: INSULIN REGULAR, HUMAN 300 UNIT/3 ML VIAL SQ PRN (21:32)
[2017-12-31] MEDS: ATORVASTATIN 20 MG TABLET PO SCH (21:32)
[2017-12-31] MEDS: DOCUSATE SODIUM 100 MG CAPSULE PO SCH (21:33)
[2018-01-01 04:41] VITALS: BP 120/52
[2018-01-01] MEDS: ACETAMINOPHEN 325 MG TABLET PO PRN ×2 (04:43→10:42)
--- NOTE | 2018-01-01 05:08 | NUR ---
Pt slept lightly through the night. Continues to complain of a headache which was relieved by PRN Tylenol. No C/O of SOB or respiratory distress noted. Skin and catheter care provided. Call light within reach.
[2018-01-01] MEDS: NORMAL SALINE FLUSH 10 ML DISP.SYRIN IV SCH ×2 (05:31→14:27)
[2018-01-01] MEDS: CLONIDINE HCL 0.1 MG TABLET PO SCH ×2 (05:32→14:27)
[2018-01-01] MEDS: hydrALAZINE HCL 50 MG TABLET PO SCH ×2 (05:32→14:27)
[2018-01-01] MEDS: PANTOPRAZOLE SODIUM 40 MG TABLET.DR PO SCH (06:36)
[2018-01-01] MEDS: BLOOD SUGAR DIAGNOSTIC 1 EACH STRIP VI SCH ×3 (06:36→17:03)
[2018-01-01 06:56] LABS: BASOPHILS # (AUTO) 0.1 K/uL (0.0-8.0); BASOPHILS % (AUTO) 0.4 % (0.0-2.0); EOSINOPHILS # (AUTO) 0.5 K/uL (0.0-0.7); HEMATOCRIT 34.3 % (36.7-47.1); LYMPHOCYTES # (AUTO) 0.9 K/uL (20.0-40.0); MEAN CORPUSCULAR HEMOGLOBIN 25.4 uug (23.8-33.4); MEAN CORPUSCULAR HGB CONC 32 g/dL (32.5-36.3); MEAN CORPUSCULAR VOLUME 79.4 fL (73.0-96.2); MONOCYTES # (AUTO) 1.4 K/uL (2.0-10.0); MONOCYTES % (AUTO) 9.3 % (0.0-11.0); NEUTROPHILS # (AUTO) 12.6 K/uL (1.8-8.9); NEUTROPHILS % (AUTO) 81.3 % (38.5-71.5); PLATELET COUNT (AUTO) 201 K/uL (152-348); RED BLOOD CELL COUNT(AUTO) 4.32 MIL/uL (4.06-5.63); WHITE BLOOD COUNT (AUTO) 15.5 K/uL (3.6-10.2)
[2018-01-01] MEDS: IPRATROPIUM BROMIDE 0.5 MG/2.5 ML NEBU NEB SCH ×4 (07:02→19:08)
[2018-01-01] MEDS: ALBUTEROL SULFATE 2.5 MG/ 0.5 ML NEBU NEB SCH ×4 (07:02→19:08)
[2018-01-01 07:18] LABS: BILIRUBIN,TOTAL 0.4 mg/dL (0.2-1.0); CREATININE 3.9 mg/dL (0.6-1.3); MAGNESIUM 2.3 mg/dL (1.8-2.4); PHOSPHOROUS 4.6 mg/dL (2.5-4.9); POTASSIUM 4.6 mmol/L (3.5-5.1); TOTAL PROTEIN, SERUM 5.8 g/dL (6.4-8.2)
[2018-01-01 08:00] VITALS: BP 141/38
[2018-01-01] MEDS: LINAGLIPTIN 5 MG TABLET PO SCH (08:56)
[2018-01-01] MEDS: predniSONE 5 MG TABLET PO SCH (08:56)
[2018-01-01] MEDS: AMLODIPINE 10 MG TABLET PO SCH (08:56)
[2018-01-01] MEDS: LACTOBACILLUS RHAMNOSUS GG 1 EACH CAPSULE PO SCH (08:56)
[2018-01-01] MEDS: CARVEDILOL 25 MG TABLET PO SCH ×2 (08:57→17:05)
[2018-01-01] MEDS: ASPIRIN EC 81 MG TABLET.DR PO SCH (08:57)
[2018-01-01] MEDS: BUMETANIDE 1 MG TABLET PO SCH (08:57)
[2018-01-01] MEDS: OMEGA-3 FATTY ACIDS/FISH OIL CAPSULE PO SCH (08:57)
[2018-01-01] MEDS: BETAMET DP 0.05% AUGM CR 15 GM CREAM.GM. TOP SCH (08:58)
[2018-01-01] MEDS: CLOTRIMAZOLE 1% CREAM 30 GM TUBE TOP SCH ×2 (08:59→17:04)
[2018-01-01] MEDS: Z GUARD REMEDY PASTE 57 GM TUBE TOP SCH ×2 (08:59→17:04)
[2018-01-01] MEDS: HEPARIN SODIUM,PORCINE 5,000 UNITS/ML VIAL SQ SCH (09:00)
[2018-01-01 10:51] VITALS: BP 124/48
[2018-01-01] MEDS: INSULIN REGULAR, HUMAN 300 UNIT/3 ML VIAL SQ PRN ×2 (11:42→17:07)
[2018-01-01 14:55] VITALS: BP 134/45
[2018-01-01] MEDS ORDERED: CLOT30CR24 TOP (16:48)
[2018-01-01] MEDS ORDERED: LACT1CAP57 PO (16:48)
[2018-01-01] MEDS ORDERED: IPRA0.2S6 NEB (16:48)
[2018-01-01] MEDS ORDERED: ALBU1.25 NEB (16:48)
[2018-01-01] MEDS ORDERED: HEPA50007 SQ (16:48)
[2018-01-01] MEDS ORDERED: PANT40TA2 PO (16:48)
[2018-01-01] MEDS ORDERED: PRED-170 PO (16:48)
[2018-01-01] MEDS ORDERED: BUME1TAB4 PO (16:48)
[2018-01-01] MEDS ORDERED: FOLI0.8T2 PO (16:48)
[2018-01-01] MEDS ORDERED: HYDR-3326 PO (16:48)
[2018-01-01] MEDS ORDERED: INSU100V28 SQ (16:48)
[2018-01-01] MEDS ORDERED: CLON0.1T14 PO (16:48)
[2018-01-01] MEDS ORDERED: OMEG1CAP PO (16:48)
[2018-01-01] MEDS ORDERED: LINA5TAB PO (16:48)
[2018-01-01] MEDS ORDERED: Blood Sugar Diagnostic VI (16:48)
[2018-01-01] MEDS ORDERED: HYDR50TA68 PO (16:48)
[2018-01-01] MEDS ORDERED: CARV25TA2 PO (16:48)
[2018-01-01] MEDS ORDERED: DEXT50DI8 IV (16:48)
[2018-01-01] MEDS ORDERED: ACET325T53 PO (16:48)
[2018-01-01] MEDS ORDERED: DOCU100C36 PO (16:48)
[2018-01-01] MEDS ORDERED: ASPI-618 PO (16:48)
[2018-01-01] MEDS ORDERED: MENT71OI TOP (16:48)
[2018-01-01] MEDS: HYDROCODONE/APAP 5-325MG TABLET PO PRN (16:56)
--- NOTE | 2018-01-01 18:20 | NUR ---
Spoke with Dr. Zarate and orders to dcd nassar catheter and IV line received, orders carried.
--- NOTE | 2018-01-01 18:31 | NUR ---
[facility] for hemodialysis tomorrow 01/02/2018 1200. and schedule on Tuesdays, , & Saturdays 1215. as arranged by case management. Pt's Ms. Walker at bedside and educated and verbalized understanding of dcd instructions. Patient will be going via ambulance with ETA of 2029. Telephone report given to rn. Hinojosa at [facility].
--- NOTE | 2018-01-01 18:39 | NUR ---
nassar catheter and IV line dcd as ordered.
--- NOTE | 2018-01-01 19:11 | NUR ---
report given to Carloz maranda.
[2018-01-01 20:00] VITALS: BP 138/37
--- NOTE | 2018-01-01 21:34 | NUR ---
NURSING CLINICAL NOTE: [facility], A&O X4, on 2 L NC, sating well. VSS. denies pain or SOB. In a stable condition.
[2018-01-01 21:36] VITALS: BP 138/37
== END 2018-01-01 21:35 | DRG 871 ==
LOC: ER 22:02 → DOU 12-13 02:14 → TELE-TD 12-13 02:35 → CCU 12-16 06:30 → TELE-TD 12-19 07:58 → TELE 12-20 13:14 → MED 12-21 13:05
PROVIDERS: ADMIT Internal Medicine; ATTEND Nurse Practitioner Acute Care
PROC: 0W993ZX Drainage of Right Pleural Cavity, Percutaneous Approach, Diagnostic (ICD-10-PCS; 2017-12-14)
PROC: 5A09357 Assistance with Respiratory Ventilation, Less than 24 Consecutive Hours, Continuous Positive Airway Pressure (ICD-10-PCS; principal; 2017-12-17)
PROC: 05HM33Z Insertion of Infusion Device into Right Internal Jugular Vein, Percutaneous Approach (ICD-10-PCS; 2017-12-22)
PROC: B543ZZA Ultrasonography of Right Jugular Veins, Guidance (ICD-10-PCS; 2017-12-22)
PROC: 5A1D70Z Performance of Urinary Filtration, Intermittent, Less than 6 Hours Per Day (ICD-10-PCS; 2017-12-23)
DX: A41.9 Sepsis, unspecified organism (principal); J96.01 Acute respiratory failure with hypoxia; E43 Unspecified severe protein-calorie malnutrition; I13.2 Hypertensive heart and chronic kidney disease with heart failure and with stage 5 chronic kidney disease, or end stage renal disease; J18.9 Pneumonia, unspecified organism; D68.59 Other primary thrombophilia; E11.21 Type 2 diabetes mellitus with diabetic nephropathy; J91.8 Pleural effusion in other conditions classified elsewhere; N18.6 End stage renal disease; I50.33 Acute on chronic diastolic (congestive) heart failure; L03.115 Cellulitis of right lower limb; I69.354 Hemiplegia and hemiparesis following cerebral infarction affecting left non-dominant side; J44.0 Chronic obstructive pulmonary disease with (acute) lower respiratory infection; J44.1 Chronic obstructive pulmonary disease with (acute) exacerbation; L03.116 Cellulitis of left lower limb; B15.9 Hepatitis A without hepatic coma; R65.20 Severe sepsis without septic shock; E66.01 Morbid (severe) obesity due to excess calories; E11.51 Type 2 diabetes mellitus with diabetic peripheral angiopathy without gangrene; E11.22 Type 2 diabetes mellitus with diabetic chronic kidney disease; Z99.2 Dependence on renal dialysis; Z79.84 Long term (current) use of oral hypoglycemic drugs; Z68.37 Body mass index [BMI] 37.0-37.9, adult; Z87.891 Personal history of nicotine dependence; Z87.01 Personal history of pneumonia (recurrent); E78.5 Hyperlipidemia, unspecified; I69.319 Unspecified symptoms and signs involving cognitive functions following cerebral infarction; E78.00 Pure hypercholesterolemia, unspecified; K42.9 Umbilical hernia without obstruction or gangrene; Z74.09 Other reduced mobility; I48.91 Unspecified atrial fibrillation
CPT/HCPCS: 32555; 36415; 36600; 70030-TC; 71045; 74018; 76770; 83605; 83615; 83735; 83970; 83986; 84100; 84155; 84165; 84166; 84300; 85025; 85730; 86705; 86706; 86708; 86803; 87040; 87070; 87205; 87340; 87400; 88342; 90937; 93005; 93307; 94640; 94660; 94664; 97110; 97112; 97116; 97530; A4649; A4663; A9150; J0360; J1644; J1815; J1940; J1956; J2250; J2270; J2405; J2543; J2920; J3010; J3370; J3490; J3535; J3590; J7030; J7040; J7060; J7512